=== PATIENT | female | born 1965 | race Caucasian/White ===

== ENCOUNTER 2018-07-26 02:06 | Emergency (ER) | payer OTHER ==
[2018-07-26 03:05] LABS: Absolute Lymphocytes (CBC) 2.9 K/uL (0.7-4.9); Absolute Monocytes 1.1 K/uL (0.1-1.3); Absolute Neutrophil 9.9 K/uL (1.8-8.0); Basophils % 0.8 % (0-1.3); Hematocrit 43.9 % (36.0-45.0); Lymphocytes % 20.2 % (15.3-44.8); MPV 9.3 fL (7.6-11.3); Monocytes % 7.5 % (3.3-12.3); RBC Red Blood Cell Count 4.43 M/uL (3.86-4.86)
[2018-07-26] MEDS ORDERED: ONDANSETRON 4 MG/2 ML VIAL ONE (03:09)
[2018-07-26] MEDS ORDERED: MORPHINE 4 MG/ML SYR ONE (03:09)
[2018-07-26] MEDS ORDERED: DIAZEPAM 10 MG/2 ML INJ SYRINGE ONE (03:10)
[2018-07-26 04:31] LABS: Albumin 3.7 g/dL (3.4-5.0); Bilirubin Total 0.4 mg/dL (0.2-1.0); Potassium 4.1 mmol/L (3.5-5.1); Protein, Total 7.2 g/dL (6.4-8.2)
[2018-07-26] MEDS ORDERED: KETOROLAC 30 MG/ML INJ ONE (04:47)
--- NOTE | 2018-07-26 04:50 | EDPHYS ---
Physician Documentation [facility] Name: Amanda Gross Age: 53 yrs Sex: Female : 1965 Arrival Date: 07/26/2018 Time: 02:06 Bed 15 Private MD: Sage De La Torre ED Physician Peter Edwards HPI: 07/26 02:34 This 53 yrs old Female presents to ER via Ambulatory with complaints of L jmm Arm/Shoulder Pain, R Hand/Thumb Pain. 02:34 The patient or guardian complains of pain. Onset: The symptoms/episode began/occurred jmm gradually, 1 day(s) ago. Modifying factors: the symptoms are alleviated by nothing. The symptoms are aggravated by movement. Associated signs and symptoms: Pertinent negatives: chest pain. This is a 53 year old female with a history of GERD, HLP, HTN that presents to the ED with complaints of left sided shoulder pain worsening this evening. Patient states having a similar episode 2 years ago. Patient denies chest pain, denies shortness of breath. . Historical: - Allergies: 02:20 Amoxicillin; tl2 02:20 Atarax; tl2 02:20 Doxycycline; tl2 02:20 HYDROCODONE; tl2 02:20 steroids; tl2 02:20 Sulfa (Sulfonamide Antibiotics); tl2 - Home Meds: 02:20 [place] Thyroid 180 mg Oral tab daily [Active]; biotin 1,000 mcg Oral chew 2 tab daily tl2 [Active]; Bystolic 5 mg Oral tab 1 tab once daily [Active]; Fish Oil 1,000 mg Oral cap twice a day [Active]; Lipitor 40 mg Oral tab 1 tab once daily [Active]; metoprolol tartrate 50 mg Oral tab 1 tab once daily [Active]; Protonix 40 mg Oral TbEC 1 tab once daily [Active]; Singulair 10 mg Oral tab 1 tab once daily [Active]; Vitamin D3 5,000 unit Oral tab daily [Active]; - PMHx: 02:20 Cholelithiasis; Diverticulitis; GERD; High Cholesterol; Hypertension; Hypothyroidism; tl2 Kidney stones; RIGHT RENAL ART ANUR; TUMOR REMOVAL FROM CHIN; - PSHx: 02:20 right arm sx; tl2 - Immunization history:: Adult Immunizations up to date. - Social history:: Smoking status: Patient uses tobacco products, smokes two packs cigarettes per day. - Ebola Screening: : No symptoms or risks identified at this time. ROS: 02:34 Constitutional: Negative for fever, chills, and weight loss, Cardiovascular: Negative jm for chest pain, palpitations, and edema, Respiratory: Negative for shortness of breath, cough, wheezing, and pleuritic chest pain. 02:34 MS/extremity: Positive for pain. 02:34 All other systems are negative. Exam: 02:34 Head/Face: atraumatic. Eyes: EOMI, no conjunctival erythema appreciated ENT: Moist jmm Mucus Membranes Neck: Trachea midline, Supple Chest/axilla: Normal chest wall appearance and motion. Cardiovascular: Regular rate and rhythm. No edema appreciated Respiratory: Normal respirations, no respiratory distress appreciated Abdomen/GI: Non distended, soft Back: Normal ROM 02:34 Constitutional: The patient appears alert, awake, anxious, in obvious pain. 02:34 Musculoskeletal/extremity: Extremities: ROM: painful rom of the left shoulder, full radial pulse, full probate lawyer strength, NVI. 02:34 Skin: Appearance: Color: normal in color. 02:34 Neuro: Orientation: is normal, Mentation: is normal, Memory: is normal. 02:34 Psych: Behavior/mood is pleasant, cooperative. Vital Signs: 02:20 BP 140 / 75; Pulse 93; Resp 18; Temp 98.3(O); Pulse Ox 94% on R/A; Weight 82.55 kg; tl2 Height 5 ft. 1 in. (154.94 cm); Pain 10/10; 03:30 BP 110 / 85; Pulse 88; Resp 20; Pulse Ox 92% on R/A; jb4 04:30 BP 135 / 78; Pulse 82; Resp 16; Pulse Ox 96% on 2 lpm NC; jb4 04:45 BP 127 / 82; Pulse 83; Resp 16; Pulse Ox 95% on R/A; jb4 02:20 Body Mass Index 34.39 (82.55 kg, 154.94 cm) tl2 03:30 Pt placed on 2l NC per protocol. jb4 MDM: 02:20 Patient medically screened. [facility] 02:37 Transition of care: After a detail discussion of the patient's case, care is jmm transferred to Peter Edwards MD. 02:54 Data reviewed: vital signs, nurses notes. Counseling: I had a detailed discussion with sheng the patient and/or guardian regarding: the historical points, exam findings, and any diagnostic results supporting the discharge/admit diagnosis, lab results, radiology results. 07/26 02:29 Order name: CBC with Diff [facility] 07/26 02:29 Order name: CMP [facility] 07/26 02:29 Order name: Shoulder Left (2 View) XRAY [facility] 07/26 02:33 Order name: Troponin (emerg Dept Use Only) [facility] 07/26 02:29 Order name: Saline Lock; Complete Time: 02:53 [facility] Administered Medications: 03:02 Drug: Zofran 4 mg Route: IVP; Site: right wrist; jb4 03:35 Follow up: Response: No adverse reaction; Nausea is decreased jb4 03:04 Drug: Valium 2 mg Route: IVP; Site: right wrist; jb4 03:35 Follow up: Response: No adverse reaction; Pain is decreased jb4 03:07 Drug: morphine 4 mg Route: IVP; Site: right wrist; jb4 03:35 Follow up: Response: No adverse reaction; Pain is decreased jb4 04:43 Drug: TORadol 30 mg Route: IVP; Site: right wrist; jb4 05:00 Follow up: Response: No adverse reaction; Pain is decreased jb4 Disposition: 07:21 Co-signature as Attending Physician, Peter Edwards MD I agree with the assessment and 4 plan of care. Disposition: 07/26/18 04:50 Discharged to Home. Impression: Pain in left shoulder. - Condition is Stable. - Discharge Instructions: Musculoskeletal Pain, Pain Without a Known Cause, Shoulder Pain. - Prescriptions for Ibuprofen 600 mg Oral Tablet - take 1 tablet by ORAL route every 6 hours As needed take with food; 30 tablet. - Medication Reconciliation Form, Thank You Letter, Antibiotic Education, Prescription Opioid Use form. - Follow up: Sage De La Torre MD; When: Upon discharge from the Emergency Department; Reason: If symptoms return, Recheck today's complaints, Continuance of care. - Problem is new. - Symptoms have improved. Signatures: Dispatcher [employer] EDMS Manny Tavares PA PA jmm Knox, Taylor, RN RN tl2 Leland Jackson RN RN jb4 Peter Edwards MD MD tw4 Corrections: (The following items were deleted from the chart) 02:58 02:54 ED course: I discussed the patient with Dr. Rahman whom accepted admission. . sheng patricio 05:12 04:50 07/26/2018 04:50 Discharged to Home. Impression: Pain in left shoulder. Condition jb4 is Stable. Forms are Medication Reconciliation Form, Thank You Letter, Antibiotic Education, Prescription Opioid Use. Follow up: Sage De La Torre; When: Upon discharge from the Emergency Department; Reason: If symptoms return, Recheck today's complaints, Continuance of care. Problem is new. Symptoms have improved. tw4
--- NOTE | 2018-07-26 04:50 | ER ---
Nurse's Notes [facility] Name: Amanda Gross Age: 53 yrs Sex: Female : 1965 Arrival Date: 07/26/2018 Time: 02:06 Bed 15 Private MD: Sage De La Torre Diagnosis: Pain in left shoulder Presentation: 07/26 02:15 Presenting complaint: Patient states: left shoulder, arm and hand pain started this tl2 afternoon. Denies chest pain or shortness of breath. Transition of care: patient was not received from another setting of care. Onset of symptoms was July 25, 2018. Risk Assessment: Do you want to hurt yourself or someone else? Patient reports no desire to harm self or others. Initial Sepsis Screen: Does the patient meet any 2 criteria? No. Patient's initial sepsis screen is negative. Does the patient have a suspected source of infection? No. Patient's initial sepsis screen is negative. Care prior to arrival: None. 02:15 Method Of Arrival: Ambulatory tl2 02:15 Acuity: MEHNAZ 3 tl2 Triage Assessment: 02:20 General: Appears in no apparent distress. uncomfortable, Behavior is anxious, crying. tl2 Pain: Complains of pain in left shoulder. L arm, L hand. Historical: - Allergies: 02:20 Amoxicillin; tl2 02:20 Atarax; tl2 02:20 Doxycycline; tl2 02:20 HYDROCODONE; tl2 02:20 steroids; tl2 02:20 Sulfa (Sulfonamide Antibiotics); tl2 - Home Meds: 02:20 [place] Thyroid 180 mg Oral tab daily [Active]; biotin 1,000 mcg Oral chew 2 tab daily tl2 [Active]; Bystolic 5 mg Oral tab 1 tab once daily [Active]; Fish Oil 1,000 mg Oral cap twice a day [Active]; Lipitor 40 mg Oral tab 1 tab once daily [Active]; metoprolol tartrate 50 mg Oral tab 1 tab once daily [Active]; Protonix 40 mg Oral TbEC 1 tab once daily [Active]; Singulair 10 mg Oral tab 1 tab once daily [Active]; Vitamin D3 5,000 unit Oral tab daily [Active]; - PMHx: 02:20 Cholelithiasis; Diverticulitis; GERD; High Cholesterol; Hypertension; Hypothyroidism; tl2 Kidney stones; RIGHT RENAL ART ANUR; TUMOR REMOVAL FROM CHIN; - PSHx: 02:20 right arm sx; tl2 - Immunization history:: Adult Immunizations up to date. - Social history:: Smoking status: Patient uses tobacco products, smokes two packs cigarettes per day. - Ebola Screening: : No symptoms or risks identified at this time. Screenin:45 Abuse screen: Denies threats or abuse. Nutritional screening: No deficits noted. jb4 Tuberculosis screening: No symptoms or risk factors identified. Fall Risk IV access (20 points). Total Nolan Fall Scale indicates No Risk (0-24 pts). Assessment: 02:45 General: Appears distressed, uncomfortable, Behavior is cooperative, agitated, anxious, jb4 crying. Pain: Complains of pain in dorsal aspect of proximal phalanx of right thumb and anterior aspect of left shoulder Pain radiates to left arm Pain currently is 10 out of 10 on a pain scale. Quality of pain is described as shooting, stabbing, throbbing, Pain began 1 day ago. Neuro: Level of Consciousness is awake, alert, obeys commands, Oriented to person, place, time, situation. Cardiovascular: Patient's skin is warm and dry. Respiratory: Airway is patent Respiratory effort is even, unlabored, Respiratory pattern is regular, symmetrical. GI: No signs and/or symptoms were reported involving the gastrointestinal system. : No signs and/or symptoms were reported regarding the genitourinary system. EENT: No signs and/or symptoms were reported regarding the EENT system. Derm: Skin is intact, Skin is pink, warm \T\ dry. Musculoskeletal: Circulation, motion, and sensation intact. 03:30 Reassessment: Patient appears in no apparent distress at this time. Patient and/or jb4 family updated on plan of care and expected duration. Pain level reassessed. Patient is alert, oriented x 3, equal unlabored respirations, skin warm/dry/pink. Patient states feeling better. 04:28 Reassessment: Patient appears in no apparent distress at this time. Patient and/or jb4 family updated on plan of care and expected duration. Pain level reassessed. Patient is alert, oriented x 3, equal unlabored respirations, skin warm/dry/pink. PT reports an increase in pain, provider notified, see MAR for orders. 05:09 Reassessment: Patient appears in no apparent distress at this time. Patient and/or jb4 family updated on plan of care and expected duration. Pain level reassessed. Patient is alert, oriented x 3, equal unlabored respirations, skin warm/dry/pink. Pt discharged home with daughter, Left ED in a wheelchair. IV d/c'ed, verbalized understanding of d/c and follow up instructions. Patient states feeling better. Vital Signs: 02:20 BP 140 / 75; Pulse 93; Resp 18; Temp 98.3(O); Pulse Ox 94% on R/A; Weight 82.55 kg; tl2 Height 5 ft. 1 in. (154.94 cm); Pain 10/10; 03:30 BP 110 / 85; Pulse 88; Resp 20; Pulse Ox 92% on R/A; jb4 04:30 BP 135 / 78; Pulse 82; Resp 16; Pulse Ox 96% on 2 lpm NC; jb4 04:45 BP 127 / 82; Pulse 83; Resp 16; Pulse Ox 95% on R/A; jb4 02:20 Body Mass Index 34.39 (82.55 kg, 154.94 cm) tl2 03:30 Pt placed on 2l NC per protocol. jb4 ED Course: 02:06 Patient arrived in ED. ds1 02:07 aSge De La Torre MD is Private Physician. ds1 02:13 Manny Tavares PA is PHCP. jmm 02:13 Peter Edwards MD is Attending Physician. [facility] 02:16 Triage completed. tl2 02:20 Arm band placed on right wrist. tl2 02:30 Leland Jackson, VINCE is Primary Nurse. jb4 02:45 Patient has correct armband on for positive identification. Bed in low position. Call [facility] light in reach. Side rails up X 1. Pulse ox on. NIBP on. 03:00 X-ray completed. Portable x-ray completed in exam room. Patient tolerated procedure kw well. 03:00 Initial lab(s) drawn, by me, sent to lab. Inserted saline lock: 22 gauge in right jb4 wrist, using aseptic technique. Blood collected. 03:00 Missed attempt(s): 22 gauge in right. jb4 03:01 Shoulder Left (2 View) XRAY In Process Unspecified. EDMS 04:50 Sage De La Torre MD is Referral Physician. tw4 05:11 No provider procedures requiring assistance completed. IV discontinued, intact, jb4 bleeding controlled, No redness/swelling at site. Administered Medications: 03:02 Drug: Zofran 4 mg Route: IVP; Site: right wrist; jb4 03:35 Follow up: Response: No adverse reaction; Nausea is decreased jb4 03:04 Drug: Valium 2 mg Route: IVP; Site: right wrist; jb4 03:35 Follow up: Response: No adverse reaction; Pain is decreased jb4 03:07 Drug: morphine 4 mg Route: IVP; Site: right wrist; jb4 03:35 Follow up: Response: No adverse reaction; Pain is decreased jb4 04:43 Drug: TORadol 30 mg Route: IVP; Site: right wrist; jb4 05:00 Follow up: Response: No adverse reaction; Pain is decreased jb4 Outcome: 04:50 Discharge ordered by . tw4 05:11 Discharged to home via wheelchair, with family. jb4 05:11 Condition: stable 05:11 Discharge instructions given to patient, family, Instructed on discharge instructions, follow up and referral plans. medication usage, Demonstrated understanding of instructions, follow-up care, medications, Prescriptions given X 1. 05:12 Patient left the ED. jb4 Signatures: Dispatcher [employer] EDMS Manny Tavares PA PA jmm Sanford, Demi ds1 Diane Talavera Taylor, RN RN tl2 Leland Jackson RN RN jb4 Peter Edwards MD MD tw4 Corrections: (The following items were deleted from the chart) 04:45 03:30 BP 110 / 85; Pulse 88bpm; Resp 20bpm; Pulse Ox 92% RA; jb4 jb4
--- NOTE | 2018-07-26 08:55 | RAD REPORT ---
EXAM DESCRIPTION: RAD - Shoulder Left 2 View - 07/26/2018 3:01 am CLINICAL HISTORY: Nontraumatic left shoulder pain October 2016 COMPARISON: None. TECHNIQUE: Internal and external rotation views of the left shoulder were obtained. FINDINGS: There is no fracture or dislocation. AC joint is normal in appearance. No significant dege nerative change at the AC joint. Acromial humeral joint space is normal with no abnormal soft tissue calcifications. IMPRESSION: Negative two-view left shoulder examination for acute or significant finding. Concerns for rotator cuff tear, other internal derangement or occult bone process can be addressed wi MR imaging.
--- NOTE | 2018-07-26 16:50 | EKG ---
Test Date: 2018-07-26 Test Time: 02:21:29 Doctor Of Pharmacy: ANDRADE MEASUREMENT RESULTS: Intervals: Rate: 89 DC: 124 QRSD: 74 QT: 372 QTc: 452 [place]: P: 70 DC: 124 QRS: 53 T: 67 INTERPRETIVE STATEMENTS: Normal sinus rhythm Normal ECG Compared to ECG 11/16/2016 21:13:07 No significant changes Electronically Signed On 07-26-18 16:49:15 CDT by Freddy Cano
== END 2018-07-26 05:12 | disposition home or self-care (01) ==
LOC: ER 02:06
DX: M25.512 Pain in left shoulder (principal); F17.210 Nicotine dependence, cigarettes, uncomplicated; I10 Essential (primary) hypertension; E03.9 Hypothyroidism, unspecified; K21.9 Gastro-esophageal reflux disease without esophagitis; Z88.1 Allergy status to other antibiotic agents; Z88.2 Allergy status to sulfonamides; Z88.5 Allergy status to narcotic agent; Z88.8 Allergy status to other drugs, medicaments and biological substances; Z87.442 Personal history of urinary calculi
CPT/HCPCS: 36415; 80053; 84484; 85025; 93005; 96374; 96375; 99284; J2405; J3360

== ENCOUNTER 2024-04-22 23:50 | Observation (INO) | payer OTHER ==
[2024-04-23] MEDS ORDERED: METHYLPREDNISOLONE 125 MG INJ ONE (00:49)
[2024-04-23] MEDS ORDERED: IPRATROPIUM BROM 0.5MG/2.5ML ONE ×2 (00:49→09:29)
[2024-04-23] MEDS ORDERED: LEVALBUTEROL 0.63 MG/3 ML NEB ONE ×2 (00:50→09:15)
[2024-04-23 01:01] LABS: Absolute Eosinophils 0.1 K/uL (0-0.5); Absolute Lymphocytes (CBC) 1.8 K/uL (0.7-4.9); Absolute Monocytes 0.6 K/uL (0.1-1.3); Absolute Neutrophil 2.3 K/uL (1.8-8.0); Basophils % 0.7 % (0-1.3); Eosinophils % 1.7 % (0-4.4); Hematocrit 45.2 % (36.0-45.0); Hemoglobin 15.6 g/dL (12.0-15.0); Lymphocytes % 37.9 % (15.3-44.8); MCH 34.7 pg (27.0-35.0); MCHC 34.5 g/dL (32.0-36.0); MCV 100.5 fL (80-100); MPV 9.2 fL (7.6-11.3); Monocytes % 11.5 % (3.3-12.3); Neutrophils % 48.2 % (41.7-73.7); Nucleated Red Blood Cells % 0.2 % (0-0); Platelets 195 thou/uL (152-406); RBC Red Blood Cell Count 4.49 M/uL (3.86-4.86)
[2024-04-23 01:06] LABS: PT Prothrombin Time 10.7 SECONDS (9.4-12.5); Protime INR 1.02
[2024-04-23] MEDS ORDERED: predniSONE 20 MG TAB ONE (01:08)
[2024-04-23 01:20] LABS: ALT/SGPT 35 U/L (13-56); AST/SGOT 25 U/L (15-37); Albumin 3.1 g/dL (3.4-5.0); Albumin/Globulin Ratio 0.8 (1.1-1.8); Alkaline Phosphatase 88 U/L (45-117); Anion Gap 7.8 mEq/L (5.0-15.0); BUN Blood Urea Nitrogen 6 mg/dL (7-18); Bicarbonate 28 mEq/L (21-32); Bilirubin Direct < 0.2 mg/dL (0-0.2); Bilirubin Indirect, Calculated 0.1 mg/dL (0.2-0.8); Bilirubin Total 0.3 mg/dL (0.2-1.0); Globulin 3.9 g/dL (2.3-3.5); Glomerular Filtration Rate 100 ml/min (=/>90); Glucose Level 173 mg/dL (74-106); Magnesium 2.1 mg/dL (1.6-2.4); NT PRO-BNP 33 pg/mL (<125); Potassium 3.8 mEq/L (3.5-5.1); Sodium Level 138 mEq/L (136-145); Troponin High Sensitivity 3.7 pg/mL (<58.9)
--- NOTE | 2024-04-23 01:35 | EDPHYS ---
Physician Documentation [facility] Name: Amanda Gross Age: 58 yrs Sex: Female : 1965 Arrival Date: 04/22/2024 Time: 23:50 Bed 27 Private MD: ED Physician Aguilar Sheffield HPI: 04/23 00:20 This 58 yrs old Female presents to ER via Wheelchair with complaints of Shortness Of cp Breath. 00:20 The patient has shortness of breath at rest. cp 00:20 Onset: The symptoms/episode began/occurred 5 day(s) ago. cp 00:20 Duration: The symptoms are continuous, and are steadily getting worse. Associated signs cp and symptoms: Pertinent positives: chest pain, cough, back pain, chills, Pertinent negatives: diaphoresis. Severity of symptoms: in the emergency department the symptoms are worse moderately. Historical: - Allergies: 04/22 23:57 Amoxicillin; me1 23:57 Atarax; me1 23:57 Doxycycline; me1 23:57 HYDROCODONE; me1 23:57 Sulfa (Sulfonamide Antibiotics); me1 23:57 steroids; me1 - PMHx: 23:57 Cholelithiasis; Diverticulitis; GERD; High Cholesterol; Hypertension; Hypothyroidism; me1 Kidney stones; RIGHT RENAL ART ANUR; TUMOR REMOVAL FROM CHIN; - PSHx: 23:57 Cholecystectomy; Total abdominal hysterectomy; section; me1 - Immunization history:: Adult Immunizations up to date. - Infectious Disease History:: Denies. - Social history:: Smoking status: Patient reports the use of cigarette tobacco products, smokes two packs cigarettes per day. ROS: 04/23 00:25 Constitutional: Positive for chills, Negative for fever, cp 00:25 Eyes: Negative for injury, pain, redness, and discharge, cp 00:25 ENT: Negative for drainage from ear(s), ear pain, difficulty swallowing, difficulty handling secretions, 00:25 Cardiovascular: Positive for chest pain, with cough, Negative for edema, 00:25 Respiratory: Positive for cough, "sounds productive", shortness of breath, at rest. 00:25 Abdomen/GI: Positive for nausea and vomiting, Negative for constipation, 00:25 Neuro: Negative for altered mental status, 00:25 All other systems are negative, Exam: 00:30 Constitutional: The patient appears alert, awake, non-diaphoretic, non-toxic, well cp developed, well nourished, in obvious distress, mildly distressed, 00:30 Head/Face: Normocephalic, atraumatic. cp 00:30 Eyes: Periorbital structures: appear normal, Conjunctiva: normal, no exudate, no injection, Sclera: no appreciated abnormality, Lids and lashes: appear normal, bilaterally, 00:30 ENT: External ear(s): are unremarkable, Nose: is normal, Mouth: Lips: moist, Oral mucosa: moist, Posterior pharynx: Airway: no evidence of obstruction, patent, 00:30 Neck: ROM/movement: is normal, is supple, without pain, no range of motions limitations, 00:30 Chest/axilla: Inspection: normal, 00:30 Cardiovascular: Rate: tachycardic, Rhythm: regular, Edema: is not appreciated, JVD: is not appreciated, 00:30 Respiratory: mild respiratory distress is noted, Respirations: labored breathing, that is moderate, Breath sounds: decreased breath sounds, that are moderate, throughout, stridor, is not appreciated, wheezing: that is mild, is heard diffusely, 00:30 Abdomen/GI: Inspection: abdomen appears normal, Palpation: abdomen is soft and non-tender, in all quadrants, 00:30 Back: pain, that is moderate, of the left scapular area, right scapular area, left subscapular area and right subscapular area, 00:30 Neuro: Orientation: to person, place \\T\\ time. Mentation: is normal, Motor: moves all fours, strength is normal, Sensation: no obvious gross deficits, 01:10 ECG was reviewed by the Attending Physician. cp Vital Signs: 04/22 23:56 BP 124 / 84; Pulse 100; Resp 22; Temp 98.7; Pulse Ox 92% on R/A; Weight 77.11 kg; me1 Height 5 ft. 1 in. ; Pain 07/05; 04/23 00:00 BP 112 / 68; Pulse 92; Resp 21; Pulse Ox 94% on 3 lpm NC; al5 00:30 BP 112 / 82; Pulse 92; Resp 23; Pulse Ox 99% on 3 lpm NC; al5 01:12 BP 97 / 79; Pulse 89; Resp 21; Pulse Ox 100% on 3 lpm NC; al5 02:30 BP 112 / 78; Pulse 82; Resp 20; Pulse Ox 98% on 3 lpm NC; al5 03:00 BP 98 / 86; Pulse 91; Resp 22; Pulse Ox 99% on 3 lpm NC; al5 05:00 BP 120 / 72; Pulse 60; Resp 18 S; Pulse Ox 98% on R/A; br2 04/22 23:56 Body Mass Index 32.12 (77.11 kg, 154.94 cm) al1 04/22 23:56 Pain Scale: Adult me1 MDM: 00:07 Medical Screening Exam initiated cp 00:30 Differential diagnosis: Chronic Obstructive Pulmonary Disease pneumonia, Pneumothorax cp pulmonary edema, Pulmonary Embolism Sepsis Unstable Angina. 01:35 Data reviewed: vital signs, nurses notes, lab test result(s), EKG, radiologic studies, cp plain films, and as a result, I will admit patient. 01:35 Antibiotic administration: Levaquin given. I considered the following discharge cp prescriptions or medication management in the emergency department Medications were administered in the Emergency Department. See MAR. Care significantly affected by the following chronic conditions: Hypertension, Chronic Obstructive Pulmonary Disease. Counseling: I had a detailed discussion with the patient and/or guardian regarding the historical points, exam findings, and any diagnostic results supporting the discharge/admit diagnosis, lab results, radiology results, the need for further work-up and treatment in the hospital. Response to treatment: the patient's symptoms have mildly improved after treatment. Admission orders: after a detailed discussion of the patient's condition and case, the admit orders are written by me. 04/23 00:17 Order name: Basic Metabolic Panel; Complete Time: cp 04/23 01: Interpretation: Normal except: GLUC 173; BUN 6. cp 04/23 00:17 Order name: CBC with Diff; Complete Time: 01:10 cp 04/23 01:10 Interpretation: Normal except: HGB 15.6; HCT 45.2; MCV 100.5. cp 04/23 00:17 Order name: LFT's; Complete Time: cp 04/23 01:28 Interpretation: Normal except: IBILI, CALC 0.1; ALB 3.1; GLOB 3.9; A/G 0.8. cp 04/23 00:17 Order name: Magnesium; Complete Time: 01:27 cp 04/23 00:17 Order name: NT PRO-BNP; Complete Time: 01:27 cp 04/23 00:17 Order name: PT-INR; Complete Time: 01:10 cp 04/23 00:17 Order name: Troponin HS; Complete Time: 01:27 cp 04/23 00:18 Order name: SARS RAPID cp 04/23 00:18 Order name: Influenza Screen (a \\T\\ B) cp 04/23 00:18 Order name: RSV cp 04/23 01:33 Order name: Lactate w/ 2H reflex if indic. cp 04/23 01:33 Order name: Blood Culture Adult (2) cp 04/23 01:33 Order name: Urinalysis w/ reflexes cp 04/23 01:58 Order name: Basic Metabolic Panel EDMS 04/23 01:58 Order name: Basic Metabolic Panel EDMS 04/23 01:58 Order name: CBC with Automated Diff EDMS 04/23 01:58 Order name: CBC with Automated Diff EDMS 04/23 01:58 Order name: NT PRO-BNP EDMS 04/23 01:58 Order name: NT PRO-BNP EDMS 04/23 01:58 Order name: Troponin High Sensitivity EDMS 04/23 00:17 Order name: XRAY Chest (1 view) cp 04/23 00:17 Order name: Cardiac monitoring; Complete Time: 00:42 cp 04/23 00:17 Order name: EKG - Nurse/Tech; Complete Time: 01:07 cp 04/23 00:17 Order name: IV Saline Lock; Complete Time: 00:42 cp 04/23 00:17 Order name: Labs collected and sent; Complete Time: 00:42 cp 04/23 00:17 Order name: O2 Per Protocol; Complete Time: 00:42 cp 04/23 00:17 Order name: O2 Sat Monitoring; Complete Time: 00:42 cp EC:10 Rate is 88 beats/min. Rhythm is regular. NH interval is normal. QRS interval is normal. cp QT interval is normal. T waves are Inverted in lead aVR. Interpreted by me. Reviewed by me. Administered Medications: 00:23 CANCELLED (Physician Discretion): DuoNeb Nebulize (2.5 mg - 0.5 mg) 3 ml Nebulizer once cp 01:00 CANCELLED (Physician Discretion): [id number] mg IVP once cp 01:16 Drug: Ipratropium Inhalation Aerosol 0.5 mg Inhalation once Route: Inhalation; br2 02:30 Follow up: Response: No adverse reaction br2 01:16 Drug: predniSONE PO 60 mg PO once Route: PO; br2 02:00 Follow up: Response: No adverse reaction br2 01:17 Drug: Levalbuterol Inhalation 1.25 mg Inhalation once Route: Inhalation; br2 02:30 Follow up: Response: No adverse reaction br2 02:21 CANCELLED (Physician Discretion): hydrocodone-acetaminophen(7.5 mg-325 mg) 1 tabs PO cp once; RASS on ADMIN: Combtv4, Very Agttd3, Agttd2, Rstlss1, AlertClm0, Drwsy-1, Lt Sdtn-2, Mod Sdtn-3, Dp Sdtn-4, UnArsble-5 02:35 Not Given (Physician Discretion): fentanyl (pf)25 mcg IVP once cp 02:55 Drug: levofloxacin IVPB 750 mg 150 ml IVPB once over 90 mins Volume: 150 ml; Route: br2 IVPB; Infused Over: 90 mins; Site: right antecubital; 04:00 Follow up: Response: No adverse reaction; IV Status: Completed infusion; IV Intake: br2 150ml 02:55 Drug: Ibuprofen PO 800 mg PO once Route: PO; br2 03:30 Follow up: Response: No adverse reaction br2 02:56 Drug: NS 0.9% IV 500 ml IV at bolus once; to be given as a bolus over 30 minutes Route: br2 IV; Rate: bolus; Site: right antecubital; 03:30 Follow up: IV Status: Completed infusion; IV Intake: 500ml br2 Disposition: 06:29 I was immediately available on-site in the Emergency Department for consultation in the ms3 care of the patient. Disposition Summary: 04/23/24 01:34 Hospitalization Ordered Notes: Hospitalization Status: Inpatient Admission cp Provider: Karon De La Torre cp Condition: Stable cp Problem: new cp Symptoms: have improved cp Bed/Room Type: Standard cp Location: Telemetry/MedSurg (Inpatient)(04/23/24 13:28) bd Room Assignment: [facility](04/23/24 13:28) bd Diagnosis - Pneumonia, unspecified organism cp - COPD/ Chronic obstructive pulmonary disease with (acute) exacerbation cp Forms: - Medication Reconciliation Form cp - SBAR form cp - Leadership Thank You Letter cp Signatures: Dispatcher [employer] EDMS Regina Joe Corey, PA PA cp Able, Lacie, RN RN lg3 Aguilar Sheffield, DO ms3 Michelle Maldonado, RN RN me1 Blanca Hoyt RN RN br2 Corrections: (The following items were deleted from the chart) 00:18 00:18 BASIC METABOLIC PANEL+C.LAB.BRZ ordered. EDMS EDMS 00:18 00:18 CBC+H.LAB.BRZ ordered. EDMS EDMS 00:18 00:18 HEPATIC FUNCTION+C.LAB.BRZ ordered. EDMS EDMS 00:18 00:18 MAGNESIUM+C.LAB.BRZ ordered. EDMS EDMS 00:18 00:18 PROBNP+C.LAB.BRZ ordered. EDMS EDMS 00:18 00:18 PROTIME (+INR)+COAG.LAB.BRZ ordered. EDMS EDMS 00:18 00:18 Troponin High Sensitivity+C.LAB.BRZ ordered. EDMS EDMS 00:18 00:18 Chest Single View+RAD.RAD.BRZ ordered. EDMS EDMS 00:19 00:18 SARS-COV-2 Antigen Rapid+I.LAB.BRZ ordered. EDMS EDMS 00:19 00:18 Influenza Screen (A \\T\\ B)+BA.LAB.BRZ ordered. EDMS EDMS 00:19 00:18 Respiratory Syncytial Virus Ag+BA.LAB.BRZ ordered. EDMS EDMS 00:23 00:17 DuoNeb Nebulize (2.5 mg - 0.5 mg) 3 ml Nebulizer once ordered. cp cp 01:00 00:17 MethylPrednisoLONE IVP 125 mg IVP once ordered. cp cp 01:33 01:33 LACTATE+C.LAB.BRZ ordered. EDMS EDMS 01:33 01:33 BLOOD CULTURE*+BA.LAB.BRZ ordered. EDMS EDMS 01:33 01:33 Urinalysis+U.LAB.BRZ ordered. EDMS EDMS 02:21 01:49 Hydrocodone-Acetaminophen PO (7.5 mg-325 mg) 1 tabs PO once; RASS on ADMIN: cp Combtv4, Very Agttd3, Agttd2, Rstlss1, AlertClm0, Drwsy-1, Lt Sdtn-2, Mod Sdtn-3, Dp Sdtn-4, UnArsble-5 ordered. cp 02:21 01:34 Telemetry/MedSurg (Inpatient) cp lg3 02:21 01:34 cp lg3 13: 02:21 [facility] ER HOLD lg3 bd : 02:21 ERHOLD- lg3 bd
--- NOTE | 2024-04-23 01:35 | ER ---
Nurse's Notes [facility] Name: Amanda Gross Age: 58 yrs Sex: Female : 1965 Arrival Date: 04/22/2024 Time: 23:50 Bed 27 Private MD: Diagnosis: Pneumonia, unspecified organism;COPD/ Chronic obstructive pulmonary disease with (acute) exacerbation Presentation: 04/22 23:56 Chief complaint: Patient states: cough, congestion, fever, chills, diarrhea, nausea, me1 upper middle back pain that started last Tuesday. Coronavirus screen: Vaccine status: Patient reports being unvaccinated. Ebola Screen: No symptoms or risks identified at this time. Initial Sepsis Screen: Does the patient meet any 2 criteria? HR > 90 bpm. Risk Assessment: Do you want to hurt yourself or someone else? Patient reports no desire to harm self or others. Onset of symptoms was April 17, 2024. 23:56 Method Of Arrival: Wheelchair me1 23:56 Acuity: MEHNAZ 3 me1 Triage Assessment: 04/23 00:15 General: Appears uncomfortable, Behavior is anxious. Respiratory: the patient has br2 moderate shortness of breath. Historical: - Allergies: 04/22 23:57 Amoxicillin; me1 23:57 Atarax; me1 23:57 Doxycycline; me1 23:57 HYDROCODONE; me1 23:57 Sulfa (Sulfonamide Antibiotics); me1 23:57 steroids; me1 - PMHx: 23:57 Cholelithiasis; Diverticulitis; GERD; High Cholesterol; Hypertension; Hypothyroidism; me1 Kidney stones; RIGHT RENAL ART ANUR; TUMOR REMOVAL FROM CHIN; - PSHx: 23:57 Cholecystectomy; Total abdominal hysterectomy; section; me1 - Immunization history:: Adult Immunizations up to date. - Infectious Disease History:: Denies. - Social history:: Smoking status: Patient reports the use of cigarette tobacco products, smokes two packs cigarettes per day. Screenin/27 00:[address] [facility] ED Fall Risk Assessment (Adult) History of falling in the last 3 months, br2 including since admission No falls in past 3 months (0 pts) Confusion or Disorientation No (0 pts) Intoxicated or Sedated No (0 pts) Impaired Gait No (0 pts) Mobility Assist Device Used Yes (1 pt) Altered Elimination No (0 pt) Score/Fall Risk Level 0 - 2 = Low Risk Oriented to surroundings, Maintained a safe environment. Abuse screen: Denies threats or abuse. Denies injuries from another. Nutritional screening: No deficits noted. Tuberculosis screening: Assessment: 00:15 Reassessment: Patient and/or family updated on plan of care and expected duration. Pain br2 level reassessed. General: Appears uncomfortable, Behavior is calm, cooperative. Cardiovascular: Capillary refill < 3 seconds. Respiratory: Airway is patent Respiratory effort is pursed lip, Respiratory pattern is regular, symmetrical, Breath sounds are diminished bilaterally. 03:30 Reassessment: Patient and/or family updated on plan of care and expected duration. Pain br2 level reassessed. Patient is alert, oriented x 3, equal unlabored respirations, skin warm/dry/pink. Patient states feeling better. Pain: Complains of pain in anterior aspect of right upper chest Pain radiates to right scapular area and right subscapular area Pain currently is 3 out of 10 on a pain scale. Cardiovascular: Rhythm is regular. 05:30 Reassessment: Patient and/or family updated on plan of care and expected duration. Pain br2 level reassessed. Patient is alert, oriented x 3, equal unlabored respirations, skin warm/dry/pink. Patient states feeling better. Patient states symptoms have improved. Vital Signs: 04/22 23:56 BP 124 / 84; Pulse 100; Resp 22; Temp 98.7; Pulse Ox 92% on R/A; Weight 77.11 kg; me1 Height 5 ft. 1 in. ; Pain 4/10; 04/23 00:00 BP 112 / 68; Pulse 92; Resp 21; Pulse Ox 94% on 3 lpm NC; al5 00:30 BP 112 / 82; Pulse 92; Resp 23; Pulse Ox 99% on 3 lpm NC; al5 01:12 BP 97 / 79; Pulse 89; Resp 21; Pulse Ox 100% on 3 lpm NC; al5 02:30 BP 112 / 78; Pulse 82; Resp 20; Pulse Ox 98% on 3 lpm NC; al5 03:00 BP 98 / 86; Pulse 91; Resp 22; Pulse Ox 99% on 3 lpm NC; al5 05:00 BP 120 / 72; Pulse 60; Resp 18 S; Pulse Ox 98% on R/A; br2 04/22 23:56 Body Mass Index 32.12 (77.11 kg, 154.94 cm) vt1 04/22 23:56 Pain Scale: Adult [facility] [place] ED Course: 04/22 23:52 Patient arrived in ED. im 23:55 Naga Valdez PA is PHCP. cp 23:55 Aguilar Sheffield DO is Attending Physician. cp 23:57 Triage completed. me1 23:57 Arm band placed on Patient placed in an exam room. me1 04/23 00:15 Patient has correct armband on for positive identification. Bed in low position. Call br2 light in reach. Provided Education on: PLAN OF CARE. 00:41 Blanca Hoyt, RN is Primary Nurse. br2 00:42 RSV Sent. br2 00:42 Influenza Screen (a \T\ B) Sent. br2 00:42 SARS RAPID Sent. br2 00:42 Basic Metabolic Panel Sent. br2 00:42 CBC with Diff Sent. br2 00:42 LFT's Sent. br2 00:42 Magnesium Sent. br2 00:42 NT PRO-BNP Sent. br2 00:42 PT-INR Sent. br2 00:43 Troponin HS Sent. br2 01:33 Karon De La Torre MD is Hospitalizing Provider. cp 01:41 XRAY Chest (1 view) In Process Unspecified. EDMS 02:08 First set of blood cultures drawn by me. vk 02:15 Blood Culture Adult (2) Sent. vk 02:15 Lactate w/ 2H reflex if indic. Sent. vk 02:16 Initial lab(s) drawn, by me, sent to lab. vk 02:47 Daughter, Holly Luo. rv1 07:18 No provider procedures requiring assistance completed. Patient admitted, IV remains in jl7 place. intact, No redness/swelling at site. Administered Medications: 00:23 CANCELLED (Physician Discretion): DuoNeb Nebulize (2.5 mg - 0.5 mg) 3 ml Nebulizer once cp 01:00 CANCELLED (Physician Discretion): [id number] mg IVP once cp 01:16 Drug: Ipratropium Inhalation Aerosol 0.5 mg Inhalation once Route: Inhalation; br2 02:30 Follow up: Response: No adverse reaction br2 01:16 Drug: predniSONE PO 60 mg PO once Route: PO; br2 02:00 Follow up: Response: No adverse reaction br2 01:17 Drug: Levalbuterol Inhalation 1.25 mg Inhalation once Route: Inhalation; br2 02:30 Follow up: Response: No adverse reaction br2 02:21 CANCELLED (Physician Discretion): hydrocodone-acetaminophen(7.5 mg-325 mg) 1 tabs PO cp once; RASS on ADMIN: Combtv4, Very Agttd3, Agttd2, Rstlss1, AlertClm0, Drwsy-1, Lt Sdtn-2, Mod Sdtn-3, Dp Sdtn-4, UnArsble-5 02:35 Not Given (Physician Discretion): fentanyl (pf)25 mcg IVP once cp 02:55 Drug: levofloxacin IVPB 750 mg 150 ml IVPB once over 90 mins Volume: 150 ml; Route: br2 IVPB; Infused Over: 90 mins; Site: right antecubital; 04:00 Follow up: Response: No adverse reaction; IV Status: Completed infusion; IV Intake: br2 150ml 02:55 Drug: Ibuprofen PO 800 mg PO once Route: PO; br2 03:30 Follow up: Response: No adverse reaction br2 02:56 Drug: NS 0.9% IV 500 ml IV at bolus once; to be given as a bolus over 30 minutes Route: br2 IV; Rate: bolus; Site: right antecubital; 03:30 Follow up: IV Status: Completed infusion; IV Intake: 500ml br2 Medication: 00:15 VIS not applicable for this client. br2 Intake: 03:30 IV: 500ml; Total: 500ml. br2 04:00 IV: 150ml; Total: 650ml. br2 Outcome: 01:34 Decision to Hospitalize by Provider. cp 07:18 Admitted to ER Hold. Please see [facility] for further documentation. jlKassy 07:18 Condition: stable 07:18 Instructed on the need for admit, 14:31 Admitted to Med/surg accompanied by nursealisson 14:31 Patient left the ED. alisson Signatures: Dispatcher [employer] EDMS Naga Valdez PA PA cp Leal, Jahala RN RN ric7 Joyce Small 1 Sandra Ott Michelle, RN RN vt1 Suni Bo Amanda, RN RN al5 Blanca Hoyt, RN RN br2
[2024-04-23 01:48] LABS: SARS-CoV-2 Antigen CONTROL BLUE LINE VIS/BG OK; SARS-CoV-2 Antigen Rapid Res Negative (Negative)
[2024-04-23] MEDS ORDERED: ONDANSETRON 4 MG/2 ML VIAL IV PRN (01:52)
[2024-04-23] MEDS ORDERED: HYDROCODONE/APAP 5/325 MG TAB PO PRN (01:52)
[2024-04-23] MEDS: Levofloxacin500mg IV 500 MG/100 ML BAG IV SCH (02:00)
[2024-04-23] MEDS ORDERED: NA CHLORIDE 0.9% 500 ML ONE (02:19)
[2024-04-23] MEDS ORDERED: HYDROCODONE/APAP 7.5/325 MG TAB ONE (02:19)
[2024-04-23] MEDS: Levofloxacin 750mg IV 750 MG/150 ML BAG IV ONE (02:41)
[2024-04-23] MEDS ORDERED: IBUPROFEN 400 MG TAB ONE (02:49)
[2024-04-23 03:43] VITALS: BMI 31.9
[2024-04-23 04:18] LABS: Specific Gravity 1.012 (1.005-1.030); Sqamous Epithelial <5 /HPF (None Seen); Urine Bacteria None Seen /HPF (<20); Urine Bilirubin NEGATIVE (Negative); Urine Blood Negative (Negative); Urine Clarity Turbid (Clear); Urine Color Light-Yellow (Yellow); Urine Culture Reflex Order NOT NEEDED; Urine Glucose NEGATIVE (Negative); Urine Ketones NEGATIVE (Negative); Urine Microscopic Reflex YN ORDER UMIC; Urine Mucus Slight /HPF (None Seen); Urine Nitrite NEGATIVE (Negative); Urine Protein NEGATIVE (Negative); Urine RBC <5 /HPF (None Seen); Urine Urobilinogen Normal (Normal); Urine WBC <5 /HPF (<5); Urine pH 7.5 (5.0-7.0)
--- NOTE | 2024-04-23 06:38 | RAD REPORT ---
EXAM: XR Chest, 1 View CLINICAL HISTORY: The patient is 58 years old and is Female; Cough;SOB TECHNIQUE: Frontal view of the chest. COMPARISON: No relevant prior studies available. FINDINGS: LUNGS: The lungs are hyperinflated. Linear opacity in the lower lobes is noted. There is no lobar consolidation. PLEURAL SPACE: Unremarkable. No pneumothorax. HEART: Unremarkable. No cardiomegaly. MEDIASTINUM: Unremarkable. Normal mediastinal contour. BONES/JOINTS: Unremarkable. No acute fracture. UPPER ABDOMEN: Unremarkable as visualized. IMPRESSION: Hyperinflated lungs with linear opacities in the lung bases suggestive of atelectasis. Electronically signed by: Judi Courtney MD 04/23/2024 01:42 AM [facility] Due to temporary technical issues with the PACS/Gridsum reporting system, reports are being jonatan d by the in-house radiologist without review as a courtesy to ensure prompt reporting the interpreting radiologist is fully responsible for the content of the report. Transcribed Date/Time: 04/23/2024 6:38 AM
[2024-04-23] MEDS: ALBUTEROL 2.5 MG/3 ML NEB SOL NEB SCH (07:00)
[2024-04-23] MEDS ORDERED: FLU (Fluarix Triv) TS24-25(6MOS UP)/PF 45 MCG/0.5 ML Syringe IM ONE (07:45)
[2024-04-23] MEDS ORDERED: ALBUTEROL 2.5 MG/3 ML NEB SOL ONE (12:13)
[2024-04-23] MEDS: IPRATROPIUM BROM 0.5MG/2.5ML NEB SCH (13:00)
[2024-04-23] MEDS: LEVALBUTEROL 0.63 MG/3 ML NEB NEB SCH (15:05)
[2024-04-23] MEDS: ENOXAPARIN 40 MG/0.4 ML SQ SCH (16:30)
[2024-04-23] MEDS: Levofloxacin 250mg IV 500 MG/100 ML BAG IV SCH (17:31)
[2024-04-23] MEDS: ATORVASTATIN 40 MG TAB PO SCH (20:38)
[2024-04-23] MEDS: DULERA 200/5 (MOMETASONE/FORMOTEROL) INHALER IH SCH (20:39)
[2024-04-24 04:40] VITALS: O2SAT 95
--- NOTE | 2024-04-24 05:40 | HP ---
Date of Admission: 04/23/2024 Chief Complaint: Cough, congestion, fever, shortness of breath. History Of Present Illness: This is a 58-year-old female patient, who has COPD with significant long history of smoking, continues to smoke, came into the emergency room with 5 to 6 days' history of co ugh, congestion, fever, shortness of breath, and wheezing. After she was evaluated in the emergency room, she was admitted to the hospital with pneumonia and acute exacerbation of COPD. She denies any vomiting, diarrhea. No chest pain. Allergies: DOXYCYCLINE CAUSING RASH, PENICILLIN CAUSING ITCHING, SULFA CAUSING ITCHING, ALBUTEROL CA USING TACHYCARDIA, AND METHYLPREDNISOLONE CAUSE DYSPNEA AND FLUSHING OF HER FACE. Review of Systems: Respiratory: As mentioned above. Constitutional: As mentioned above. All other systems reviewed and negative. Medications: At home, she takes aspirin 81 mg daily, atorvastatin 40 mg daily at bedtime, Trelegy El lipta inhaler 1 puff daily, fluticasone nasal spray 1 spray each nostril 2 times a day, ibandronate 1 50 mg once a month, Xopenex nebulizer treatment 0.63 mg 4 times a day as needed, montelukast 10 mg da lori, Januvia 100 mg daily, vitamin D3 5000 units daily. Past Medical History: Significant for type 2 diabetes mellitus, peripheral vascular disease, leg aydee ma, mixed hyperlipidemia, hypothyroidism, allergic rhinitis, COPD, hypertension, gastroesophageal ref lux disease, renal cyst, osteoporosis, chronic sinusitis. Past Surgical History: Significant for cholecystectomy, , hysterectomy, shoulder surgery, w rist surgery, and heel surgery. Family History: Father , had problem with alcoholism and blood clot in his lung and tuberculosis . Mother has hypertension, hyperlipidemia, diabetes, stroke, and COPD. Brother, history of alcohol use, prostate cancer, diabetes, hypertension. Sister , had hypertension and COPD. Social History: Significant for ongoing active smoking on a daily basis. Alcohol use, negative. Physical Examination: Vital Signs: Temperature 97.6, pulse 82, respiratory rate 22, blood pressure 107/67, oxygen saturati on 94% on 2 L nasal cannula oxygen. Height 5 feet 1 inch, weight 169 pounds. General: Awake, alert, oriented, not in distress. HEENT: Head atraumatic, normocephalic. Conjunctivae nonerythematous. Sclerae white. Mouth, no thr ush or edema noted. Ears/Nose, no mass, lesion, discharge noted. Neck: Supple. No JVD, lymph nodes, bruit, thyromegaly noted. Lungs: Shows some scattered wheezing in her lung romo. Not using accessory muscles of respiration . Heart: Normal heart sounds, no murmur or gallop. Abdomen: Soft, bowel sounds normal. No guarding, rigidity, tenderness, mass, hepatosplenomegaly, dis tention, or bruit noted. Extremities: No leg edema. No calf tenderness. Skin: No rash, ulcer, cellulitis. Lymphatics: No lymph node enlargement in neck, supraclavicular, infraclavicular region. Neuro: No focal neurological deficit. Chest: Unremarkable. External Genitalia: Deferred. Rectal: Deferred. Laboratory Data: WBC 4.9, hemoglobin 15.6, platelets 195. Sodium 138, potassium 3.8, chloride 106, bicarb 28, BUN 6, creatinine 0.69, glucose 173, lactic acid 1.3. Liver function tests unremarkable. Troponin 3.7 on the first set, second set less than 3. Chest x-ray shows evidence of bibasilar line ar opacity, which could be atelectasis versus infiltrate. COVID-19 test negative. Impression: 1.Acute exacerbation of COPD. 2.Rule out pneumonia. 3.Hypertension. 4.Type 2 diabetes mellitus. 5.Peripheral vascular disease. 6.Mixed hyperlipidemia. 7.Hypothyroidism. 8.Allergic rhinitis. 9.Gastroesophageal reflux disease. Plan: We will go ahead and admit the patient to hospital for further evaluation and management of th is problem. The patient is appropriate for inpatient and is expected to spend 2 midnights in [facility]. For COPD exacerbation, we will go ahead and treat her with steroid. She received 60 mg of predni sone in the emergency room and starting tomorrow, we will continue prednisone 20 mg twice a day. Con tinue oxygen right now. Hopefully, we can wean off oxygen starting tomorrow. Nebulizer treatment wi ll be given using Xopenex per order and I have ordered Dulera inhaler since we do not have Trelegy in haler available in the hospital. We will give antibiotic which will be Levaquin which was started in emergency room. I have recommended the patient 1 more time today in the hospital room to quit chris corona and I have done this multiple times on outpatient basis, but in spite of that, the patient has dec ided to continue to smoke and her long-term prognosis will be poor in view of significant COPD proble m with ongoing smoking history. For hypertension, no need for further intervention except monitoring of her blood pressure and if necessary, make adjustment on medication. For hyperlipidemia, we will continue her statin therapy and no need for any further intervention. For her allergic rhinitis, she is on montelukast, which we will continue that per order and no need for any further intervention. Diabetes will not require any intervention except monitoring of blood sugar and sliding scale insulin per order and continuation of her medication. DVT prophylaxis will be given using Lovenox per order . I will see her tomorrow morning for followup. Total time spent 85 minutes including review of last office visit record from March 13, 2024, comm unication with emergency room physician, review of emergency room visit record, and performing today' s evaluation and management. HOWARD/PAOLA Voice ID: [id number]
[2024-04-24 06:24] LABS: Absolute Lymphocytes (CBC) 3.5 K/uL (0.7-4.9); Absolute Monocytes 0.7 K/uL (0.1-1.3); Absolute Neutrophil 2.5 K/uL (1.8-8.0); Basophils % 0.3 % (0-1.3); Eosinophils % 0.2 % (0-4.4); Hematocrit 42.4 % (36.0-45.0); Hemoglobin 14.1 g/dL (12.0-15.0); MCH 33.8 pg (27.0-35.0); MCHC 33.2 g/dL (32.0-36.0); MCV 101.8 fL (80-100); MPV 8.9 fL (7.6-11.3); Monocytes % 10.4 % (3.3-12.3); Neutrophils % 37.1 % (41.7-73.7); Nucleated Red Blood Cells % 0.2 % (0-0); Platelets 214 thou/uL (152-406); RBC Red Blood Cell Count 4.16 M/uL (3.86-4.86)
[2024-04-24 06:48] LABS: Anion Gap 7.7 mEq/L (5.0-15.0); Potassium 3.7 mEq/L (3.5-5.1)
[2024-04-24] MEDS: IPRATROPIUM BROM 0.5MG/2.5ML NEB PRN (07:30)
[2024-04-24 08:34] VITALS: BP 99/47; TEMP 97.6
[2024-04-24] MEDS: ASPIRIN EC 81 MG TAB PO SCH (09:17)
[2024-04-24] MEDS: predniSONE 20 MG TAB PO ONE (09:17)
[2024-04-24] MEDS: MONTELUKAST 10 MG TAB PO SCH (09:17)
--- NOTE | 2024-04-25 04:53 | DS ---
Date of Discharge: 04/24/2024 Disposition: Discharged to go home. Physical Examination: HEENT: Unremarkable. Lungs: Clear to auscultation. Heart: Sounds normal. Abdomen: Soft. Bowel sounds normal. No guarding, rigidity, tenderness, distention. Extremities: No leg edema. Laboratory Data: Yesterday, WBC 4.9, hemoglobin 15.6, platelets 195. Today, WBC 6.7, hemoglobin 14. 1, platelets 214. For chemistry yesterday, sodium 138, potassium 3.8, chloride 106, bicarb 28, BUN 6 , creatinine 0.69, glucose 173, lactic acid 1.3. Liver function tests unremarkable. First troponin 3.7, second troponin less than 3. ProBNP yesterday 33, today 104. Her chemistry today, sodium 141, potassium 3.7, chloride 109, bicarb 28, BUN 9, creatinine 0.67, glucose 99. Hospital Course: This is a 58-year-old female patient, who came into emergency room with complaints of cough, congestion, fever, and shortness of breath. Please see dictated H and P for more informati on. After the patient was evaluated in the emergency room, she was admitted to the hospital with acu te exacerbation of COPD. The patient received oxygen nebulizer treatment, oral prednisone 60 mg, and Levaquin yesterday in the emergency room. She was admitted to the hospital. Overall, her condition has improved. This morning when I saw her, no new complaints or problems reported by her, and since the patient's condition has improved, decision was made to discharge her to go home in stable condit ion with following discharge medications and instructions. Her chest x-ray had shown bibasilar linea r opacity, which could be atelectasis or early infiltrate. The patient continues to smoke and I have advised her to quit smoking during this hospitalization and multiple times prior to this hospital ad mission on outpatient basis, but so far, the patient has elected to continue to smoke. Final Diagnoses: 1.Acute exacerbation of COPD. 2.Rule out pneumonia. 3.Hypertension. 4.Type 2 diabetes mellitus. 5.Mixed hyperlipidemia. 6.Peripheral vascular disease. 7.Hypothyroidism. 8.Allergic rhinitis. 9.Gastroesophageal reflux disease. Discharge Medications And Instructions: 1.Continue all prior home medications. 2.Start Levaquin 500 mg 1 tablet by mouth daily for 1 week, take it with food. 3.Prednisone 5 mg take 4 tablets by mouth daily for 4 days, then 2 tablets by mouth daily for 4 days , then 1 tablet by mouth daily for 4 days, then stop. 4.Follow up at my office next week. Total time spent today 40 minutes. HOWARD/MODL Voice ID: [id number] Report ID: [id number]
--- NOTE | 2024-04-25 12:37 | EKG ---
Test Date: 2024-04-23 Test Time: 01:03:00 Mucker Cofferdam: LINO MEASUREMENT RESULTS: Intervals: Rate: 88 NH: 120 QRSD: 72 QT: 368 QTc: 445 Moro: P: 84 NH: 120 QRS: 79 T: 84 INTERPRETIVE STATEMENTS: Normal sinus rhythm Normal ECG Compared to ECG 07/26/2018 02:21:29 No significant changes Electronically Signed On 04-25-24 12:32:54 [employer] by Vimal Okeefe
== END 2024-04-24 10:09 | disposition home or self-care (01) ==
LOC: ER 23:50 → INTOOBSV 04-23 01:56 → ERHOLD 04-23 01:56 → 2ND 04-23 13:56
PROVIDERS: ADMIT Internal Medicine; ATTEND Internal Medicine
DX: J44.1 Chronic obstructive pulmonary disease with (acute) exacerbation (principal); I10 Essential (primary) hypertension; E11.9 Type 2 diabetes mellitus without complications; E78.2 Mixed hyperlipidemia; E03.9 Hypothyroidism, unspecified; I73.9 Peripheral vascular disease, unspecified; J30.9 Allergic rhinitis, unspecified; K21.9 Gastro-esophageal reflux disease without esophagitis; Z11.52 Encounter for screening for COVID-19; Z88.3 Allergy status to other anti-infective agents; Z88.0 Allergy status to penicillin
CPT/HCPCS: 87040 ×2; 85025 ×2; 81001; 80048 ×2; 36415 ×2; 83735; 85610; 80076; 83605; 84484 ×2; 83880 ×2; 87807; 87804 ×2; 71045; 94640 ×4; 94760 ×4; 87811; J7512 ×2; J3535; J7644 ×5; J1650; J7614 ×6; J2919; J7040; 93005; 96365; 99285; G0378; J7613

== ENCOUNTER 2024-06-16 15:49 | Inpatient (IN) | payer OTHER ==
[2024-06-16] MEDS ORDERED: IPRATROPIUM BROM 0.5MG/2.5ML ONE ×2 (16:26→19:31)
[2024-06-16] MEDS ORDERED: LEVALBUTEROL 1.25 MG/3 ML NEB ONE ×2 (16:26→19:31)
[2024-06-16] MEDS ORDERED: predniSONE 20 MG TAB ONE (16:26)
--- NOTE | 2024-06-16 16:50 | RAD REPORT ---
Procedure: Chest Pa And Lat (2 Views) HISTORY: Cough COMPARISON: March 2024 FINDINGS: The lungs appear clear of acute infiltrate. Lungs are moderately hyperaerated. No significant pleural effusion noted. The heart is mildly enlarged. . IMPRESSION: COPD without visualization of an acute abnormality
[2024-06-16 16:58] LABS: Absolute Basophils 0.1 K/uL (0-0.5); Absolute Eosinophils 0.1 K/uL (0-0.5); Absolute Lymphocytes (CBC) 3.5 K/uL (0.7-4.9); Absolute Monocytes 1.2 K/uL (0.1-1.3); Absolute Neutrophil 10.5 K/uL (1.8-8.0); Basophils % 0.7 % (0-1.3); Eosinophils % 0.4 % (0-4.4); Hematocrit 46.9 % (36.0-45.0); Hemoglobin 16.1 g/dL (12.0-15.0); Lymphocytes % 22.9 % (15.3-44.8); MCH 34.1 pg (27.0-35.0); MCHC 34.3 g/dL (32.0-36.0); MCV 99.5 fL (80-100); Monocytes % 7.7 % (3.3-12.3); Neutrophils % 68.3 % (41.7-73.7); Nucleated Red Blood Cells % 0.1 % (0-0); Platelets 313 thou/uL (152-406); RBC Red Blood Cell Count 4.72 M/uL (3.86-4.86); Red Cell Distribution Width 13.9 % (12.1-15.2)
[2024-06-16 17:07] LABS: PT Prothrombin Time 10.8 SECONDS (10-13.0); PTT, Activated Partial Thromb 27.5 SECONDS (27.2-37.4); Protime INR 0.94
[2024-06-16 17:18] LABS: Albumin 3.7 g/dL (3.4-5.0); Albumin/Globulin Ratio 0.9 (1.1-1.8); Anion Gap 6.7 mEq/L (5.0-15.0); Bilirubin Total 0.3 mg/dL (0.2-1.0); Potassium 3.7 mEq/L (3.5-5.1); Protein, Total 7.7 g/dL (6.4-8.2)
--- NOTE | 2024-06-16 18:30 | RAD REPORT ---
EXAMINATION: US bilateral LOWER EXTREMITY VENOUS DOPPLER CLINICAL INDICATION: Leg swelling TECHNIQUE: Sonographic evaluation of the veins of the lower extremity bilaterally formed.Grayscale, c olor and spectral analysis performed on all vessels COMPARISON 2023 FINDINGS: The common femoral, superficial femoral, greater saphenous, popliteal and posterior tibial veins bila terally are compressible and demonstrate augmentation. Doppler demonstrates good flow. IMPRESSION: No evidence of deep venous thrombosis involving either lower extremity
--- NOTE | 2024-06-16 19:03 | ER ---
Nurse's Notes [facility] Name: Amanda Gross Age: 59 yrs Sex: Female : 1965 Arrival Date: 06/16/2024 Time: 15:49 Bed 16 Private MD: Sage De La Torre Diagnosis: COPD/ Chronic obstructive pulmonary disease with (acute) exacerbation Presentation: 06/16 15:56 Chief complaint: Patient states: she was diagnosed with strep throat 06/14/2024 ap3 and has been on antibiotics, however patient states she is having increased shortness of breath. Coronavirus screen: At this time, the client does not indicate any symptoms associated with coronavirus-19. Ebola Screen: No symptoms or risks identified at this time. Initial Sepsis Screen: Does the patient meet any 2 criteria? HR > 90 bpm. Does the patient have a suspected source of infection? No. Patient's initial sepsis screen is negative. Risk Assessment: Do you want to hurt yourself or someone else? Patient reports no desire to harm self or others. Onset of symptoms was June 13, 2024. 15:56 Method Of Arrival: Wheelchair ap3 15:56 Acuity: MEHNAZ 3 ap3 Triage Assessment: 15:58 General: Appears ill, Behavior is calm, cooperative, appropriate for age. Pain: Denies ap3 pain. Neuro: Level of Consciousness is awake, alert, obeys commands, Oriented to person, place, time, situation, Appropriate for age. Cardiovascular: Patient's skin is warm and dry. Respiratory: Reports shortness of breath cough that is labored breathing Airway is patent Respiratory effort is even, unlabored, Onset: The symptoms/episode began/occurred gradually. Historical: - Allergies: 15:58 Amoxicillin; ap3 15:58 Atarax; ap3 15:58 Doxycycline; ap3 15:58 HYDROCODONE; ap3 15:58 steroids; ap3 15:58 Sulfa (Sulfonamide Antibiotics); ap3 - PMHx: 15:58 Cholelithiasis; Cholelithiasis; Diverticulitis; GERD; High Cholesterol; Hypertension; ap3 Hypothyroidism; Kidney stones; RIGHT RENAL ART ANUR; TUMOR REMOVAL FROM CHIN; - PSHx: 15:58 section; Cholecystectomy; Total abdominal hysterectomy; ap3 - Immunization history:: Client reports having NOT received the Covid vaccine. Flu vaccine is not up to date. - Infectious Disease History:: Denies. - Social history:: Smoking status: Patient reports the use of cigarette tobacco products, smokes two packs cigarettes per day. Screenin:58 [facility] ED Fall Risk Assessment (Adult) History of falling in the last 3 months, ap3 including since admission No falls in past 3 months (0 pts) Confusion or Disorientation No (0 pts) Intoxicated or Sedated No (0 pts) Impaired Gait No (0 pts) Mobility Assist Device Used No (0 pt) Altered Elimination No (0 pt) Score/Fall Risk Level 0 - 2 = Low Risk Oriented to surroundings, Maintained a safe environment, Educated pt \T\ family on fall prevention, incl call for assistance when getting out of bed, Assessed \T\ reinforced patient's understanding of fall precautions, Hourly rounding (assess needs \T\ fall precautionary measures) done, Used ambulatory aids as needed (educated on \T\ assisted with). Abuse screen: Denies threats or abuse. Nutritional screening: No deficits noted. Tuberculosis screening: No symptoms or risk factors identified. Assessment: 16:15 General: Appears uncomfortable, ill, Behavior is cooperative, appropriate for age, me1 anxious, Reports she was diagnosed with strep throat 06/14/2024 and has been on antibiotics, however patient states she is having increased shortness of breath. Pain: Denies pain. Neuro: Level of Consciousness is awake, alert, obeys commands, Oriented to person, place, time, situation, Appropriate for age. Cardiovascular: Patient's skin is warm and dry. Cardiovascular: Rhythm is regular. Respiratory: Airway is patent Trachea midline Respiratory effort is labored, pursed lip, using tripod position, Respiratory pattern is tachypnea Breath sounds with wheezes bilaterally. GI: No signs and/or symptoms were reported involving the gastrointestinal system. : No signs and/or symptoms were reported regarding the genitourinary system. EENT: No signs and/or symptoms were reported regarding the EENT system. Derm: Skin is intact, is healthy with good turgor, Skin is pink, warm \T\ dry. Musculoskeletal: No signs and/or symptoms reported regarding the musculoskeletal system. Vital Signs: 15:56 BP 117 / 87; Pulse 108; Resp 19; Temp 98.3; Pulse Ox 97% on R/A; Weight 79.38 kg; ap3 Height 5 ft. 1 in. ; 17:00 BP 128 / 94; Pulse 105; Resp 20; Pulse Ox 96% ; me1 18:00 BP 123 / 85; Pulse 88; Resp 20; Pulse Ox 96% on R/A; me1 21:04 BP 122 / 88; Pulse 90; Resp 22; Pulse Ox 95% on 2 lpm NC; vc1 15:56 Body Mass Index 33.07 (79.38 kg, 154.94 cm) ap3 ED Course: 15:51 Patient arrived in ED. rg4 15:51 Sage De La Torre MD is Private Physician. rg4 15:54 Matt Corley FNP-C is PHCP. dr5 15:54 Kamilah Barrera MD is Attending Physician. dr5 15:57 Triage completed. ap3 15:59 Arm band placed on left wrist. ap3 16:14 Michelle Maldonado, RN is Primary Nurse. me1 16:15 Patient has correct armband on for positive identification. Bed in low position. Call me1 light in reach. Side rails up X2. Provided Education on: POC. Verbalized understanding.. Client placed on continuous cardiac and pulse oximetry monitoring. NIBP monitoring applied. tugboat dispatcher on. Pulse ox on. NIBP on. 16:15 No provider procedures requiring assistance completed. me1 16:31 Chest Pa And Lat (2 Views) XRAY In Process Unspecified. EDMS 16:46 Initial lab(s) drawn, by me, sent to lab. First set of blood cultures drawn by wy. me1 16:50 Inserted saline lock: 22 gauge in right antecubital area, using aseptic technique. me1 16:58 Second set of blood cultures drawn. me1 16:58 Blood Culture Adult (2) Sent. me1 16:58 CBC with Diff Sent. me1 16:58 CMP Sent. me1 16:58 Lactate w/ 2H reflex if indic. Sent. me1 16:58 Protime (+inr) Sent. me1 16:58 Ptt, Activated Sent. me1 18:14 PHCP role handed off by Matt Corley FNP-C kb 18:14 Lien Johnson FNP-C is PHCP. kb 18:19 US Extremity Venous W Compression [place] In Process Unspecified. EDMS 19:02 Sage De La Torre MD is Hospitalizing Provider. kb 21:04 Patient admitted, IV remains in place. vc1 Administered Medications: 16:31 Drug: Levalbuterol Inhalation 1.25 mg Inhalation once Route: Inhalation; me1 18:06 Follow up: Response: No adverse reaction; Wheezing diminished me1 16:31 Drug: predniSONE PO 60 mg PO once Route: PO; me1 18:06 Follow up: Response: No adverse reaction me1 16:31 Drug: Ipratropium Inhalation Aerosol 0.5 mg Inhalation once Route: Inhalation; me1 18:06 Follow up: Response: No adverse reaction; Wheezing diminished me1 19:48 Drug: Levalbuterol Inhalation 1.25 mg Inhalation once Route: Inhalation; vc1 19:48 Drug: Ipratropium Inhalation Aerosol 0.5 mg Inhalation once Route: Inhalation; vc1 19:52 Drug: levofloxacin IVPB 500 mg 100 ml IVPB once over 60 mins Volume: 100 ml; Route: vc1 IVPB; Infused Over: 60 mins; Site: right antecubital; Medication: 16:15 VIS not applicable for this client. me1 Outcome: 19:02 Decision to Hospitalize by Provider. kb 21:03 Admitted to Tele accompanied by tech, via stretcher, room 420, with oxygen, with chart, vc1 21:03 Condition: stable 21:03 Instructed on the need for admit, 21:05 Patient left the ED. vc1 Signatures: Dispatcher [employer] [facility] Lien Johnson, EARLY BREASTFEEDING CARE SPECIALIST-C EARLY BREASTFEEDING CARE SPECIALIST-Ckb Lady Maza rg4 Mildred Marcelino RN RN ap3 Jessica Blum RN RN vc1 Michelle Maldonado RN RN me1 Matt Corley, EARLY BREASTFEEDING CARE SPECIALIST-C EARLY BREASTFEEDING CARE SPECIALIST-Cdr5 Corrections: (The following items were deleted from the chart) 17:32 15:56 Chief complaint: Patient states: she was diagnosed with strep throat me1 06/14/2024 and has been on antibiotics, however patient states she is having increased shortness of breath. ap3
--- NOTE | 2024-06-16 19:03 | EDPHYS ---
Physician Documentation [facility] Name: Amanda Gross Age: 59 yrs Sex: Female : 1965 Arrival Date: 06/16/2024 Time: 15:49 Bed 16 Private MD: Sage De La Torre ED Physician Kamilah Barrera HPI: 06/16 16:23 This 59 yrs old Female presents to ER via Wheelchair with complaints of dr5 Breathing Difficulty, Congestion. 16:23 The patient has shortness of breath at rest. dr5 16:24 Patient is a 59-year-old female with history of COPD, diverticulitis, GERD, dr5 hyperlipidemia, hypertension, hypothyroid coming in shortness of breath and sore throat with productive cough for the past [address] De La Torre yesterday and was recommended to come into the ER last night. Patient is currently being treated for strep throat with azithromycin with mild relief.. Historical: - Allergies: 15:58 Amoxicillin; ap3 15:58 Atarax; ap3 15:58 Doxycycline; ap3 15:58 HYDROCODONE; ap3 15:58 steroids; ap3 15:58 Sulfa (Sulfonamide Antibiotics); ap3 - PMHx: 15:58 Cholelithiasis; Cholelithiasis; Diverticulitis; GERD; High Cholesterol; Hypertension; ap3 Hypothyroidism; Kidney stones; RIGHT RENAL ART ANUR; TUMOR REMOVAL FROM CHIN; - PSHx: 15:58 section; Cholecystectomy; Total abdominal hysterectomy; ap3 - Immunization history:: Client reports having NOT received the Covid vaccine. Flu vaccine is not up to date. - Infectious Disease History:: Denies. - Social history:: Smoking status: Patient reports the use of cigarette tobacco products, smokes two packs cigarettes per day. ROS: 16:24 Constitutional: as per hpi dr5 Exam: 16:24 Constitutional: This is a well developed, well nourished patient who is awake, alert, dr5 and in no acute distress. Head/Face: Normocephalic, atraumatic. ENT: Nares patent. No nasal discharge, no septal abnormalities noted. Tympanic membranes are normal and external auditory canals are clear. Oropharynx with no redness, swelling, or masses, exudates, or evidence of obstruction, uvula midline. Mucous membranes moist. Neck: Trachea midline, no thyromegaly or masses palpated, and no cervical lymphadenopathy. Supple, full range of motion without nuchal rigidity, or vertebral point tenderness. No Meningismus. Chest/axilla: Normal chest wall appearance and motion. Nontender with no deformity. No lesions are appreciated. Cardiovascular: Regular rate and rhythm with a normal S1 and S2. Normal PMI, no JVD. No pulse deficits. 16:24 Respiratory: mild respiratory distress is noted, moderate respiratory distress is noted, Respirations: labored breathing, Breath sounds: wheezing: inspiratory expiratory is heard diffusely, Respiratory rate: 26 Vital Signs: 15:56 BP 117 / 87; Pulse 108; Resp 19; Temp 98.3; Pulse Ox 97% on R/A; Weight 79.38 kg; ap3 Height 5 ft. 1 in. ; 17:00 BP 128 / 94; Pulse 105; Resp 20; Pulse Ox 96% ; me1 18:00 BP 123 / 85; Pulse 88; Resp 20; Pulse Ox 96% on R/A; me1 21:04 BP 122 / 88; Pulse 90; Resp 22; Pulse Ox 95% on 2 lpm NC; vc1 15:56 Body Mass Index 33.07 (79.38 kg, 154.94 cm) ap3 MDM: 16:13 Medical Screening Exam initiated dr5 17:56 ED course: Spoke with Dr. De La Torre. Dr. De La Torre requesting bilateral lower venous extremity dr5 ultrasound and will call back with results for further plan.. 19:00 Differential diagnosis: asthma, Chronic Obstructive Pulmonary Disease pneumonia, kb pulmonary edema. Data reviewed: vital signs, nurses notes. Consideration of Admission/Observation Patient was admitted/placed on observation. Escalation of care including admission/observation considered. Management of patient was discussed with the following: Primary Care Provider: Dr De La Torre accepts pt for admission. Wants inpatient with levaquin 500mg IV daily, lovenox 40mg Q HS, and scheduled neb treatments. . External Records Reviewed: Inpatient record: reviewed previous H\T\P. Care significantly affected by the following chronic conditions: Chronic Obstructive Pulmonary Disease. Counseling: I had a detailed discussion with the patient and/or guardian regarding the historical points, exam findings, and any diagnostic results supporting the discharge/admit diagnosis, lab results, radiology results, the need for further work-up and treatment in the hospital. 06/16 16:22 Order name: Blood Culture Adult (2) dr5 06/16 16:22 Order name: CBC with Diff; Complete Time: 17:02 [facility] 06/16 16:22 Order name: CMP; Complete Time: 17:21 [facility] 06/16 16:22 Order name: Lactate w/ 2H reflex if indic.; Complete Time: 18:19 [facility] 06/16 16:22 Order name: Protime (+inr); Complete Time: 17:13 [facility] 06/16 16:22 Order name: Ptt, Activated; Complete Time: 17:13 [facility] 06/16 16:22 Order name: Chest Pa And Lat (2 Views) XRAY; Complete Time: 17:02 06/16 17:24 Order name: US Extremity Venous W Compression Napoleon; Complete Time: 18:45 [facility] 06/16 16:22 Order name: Accucheck; Complete Time: 17:32 [facility] 06/16 16:22 Order name: Cardiac monitoring; Complete Time: 17:32 [facility] 06/16 16:22 Order name: IV Saline Lock - Large Bore; Complete Time: 16:58 [facility] 06/16 16:22 Order name: Labs collected and sent; Complete Time: 16:58 [facility] 06/16 16:22 Order name: O2 Per Protocol; Complete Time: 16:58 [facility] 06/16 16:22 Order name: O2 Sat Monitoring; Complete Time: 16:58 [facility] 06/16 16:22 Order name: Vital Signs; Complete Time: 16:58 [facility] Administered Medications: 16:31 Drug: Levalbuterol Inhalation 1.25 mg Inhalation once Route: Inhalation; me1 18:06 Follow up: Response: No adverse reaction; Wheezing diminished me1 16:31 Drug: predniSONE PO 60 mg PO once Route: PO; me1 18:06 Follow up: Response: No adverse reaction me1 16:31 Drug: Ipratropium Inhalation Aerosol 0.5 mg Inhalation once Route: Inhalation; me1 18:06 Follow up: Response: No adverse reaction; Wheezing diminished me1 19:48 Drug: Levalbuterol Inhalation 1.25 mg Inhalation once Route: Inhalation; vc1 19:48 Drug: Ipratropium Inhalation Aerosol 0.5 mg Inhalation once Route: Inhalation; vc1 19:52 Drug: levofloxacin IVPB 500 mg 100 ml IVPB once over 60 mins Volume: 100 ml; Route: vc1 IVPB; Infused Over: 60 mins; Site: right antecubital; Disposition Summary: 06/16/24 19:02 Hospitalization Ordered Notes: Hospitalization Status: Inpatient Admission kb Provider: Sage De La Torre Location: Telemetry/MedSurg (Inpatient) kb Condition: Stable kb Problem: an acute exacerbation kb Symptoms: are unchanged kb Bed/Room Type: Standard kb Room Assignment: 420(06/16/24 19:19) [facility] Diagnosis - COPD/ Chronic obstructive pulmonary disease with (acute) exacerbation kb Forms: - Medication Reconciliation Form kb - SBAR form kb - Leadership Thank You Letter kb Signatures: Dispatcher [employer] EDMS Lien Johnson, DINING ROOM COORDINATOR-C DINING ROOM COORDINATOR-Ckb Mildred Marcelino RN RN ap3 Jessica Blum RN RN vc1 Michelle Maldonado RN RN me1 Betina Collazo [facility] Matt Corley DINING ROOM COORDINATOR-C DINING ROOM COORDINATOR-Cdr5 Corrections: (The following items were deleted from the chart) 16:23 16:23 Chest Pa And Lat (2 Views)+[email or web address] [facility]. [facility]:19 19:02 kb [facility]
[2024-06-16 22:29] VITALS: BMI 33.0
[2024-06-16] MEDS: Levofloxacin500mg IV 500 MG/100 ML BAG IV SCH (22:52)
[2024-06-16] MEDS: predniSONE 20 MG TAB PO SCH (22:52)
[2024-06-16] MEDS: ENOXAPARIN 40 MG/0.4 ML SQ SCH (23:51)
[2024-06-16] MEDS: Levofloxacin500mg IV 500 MG/100 ML BAG IV ONE (23:51)
[2024-06-17] MEDS: ALBUTEROL 2.5 MG/3 ML NEB SOL NEB SCH (01:23)
[2024-06-17] MEDS: IPRATROPIUM BROM 0.5MG/2.5ML NEB SCH (01:23)
[2024-06-17 06:12] LABS: Absolute Lymphocytes (CBC) 2.1 K/uL (0.7-4.9); Absolute Monocytes 0.9 K/uL (0.1-1.3); Absolute Neutrophil 9.9 K/uL (1.8-8.0); Basophils % 0.3 % (0-1.3); Eosinophils % 0.1 % (0-4.4); Hematocrit 42.6 % (36.0-45.0); Hemoglobin 14.7 g/dL (12.0-15.0); MCH 34.3 pg (27.0-35.0); MCHC 34.5 g/dL (32.0-36.0); MCV 99.7 fL (80-100); MPV 8.9 fL (7.6-11.3); Monocytes % 7.3 % (3.3-12.3); Neutrophils % 76.3 % (41.7-73.7); Nucleated Red Blood Cells % 0.1 % (0-0); Platelets 282 thou/uL (152-406); RBC Red Blood Cell Count 4.27 M/uL (3.86-4.86); Red Cell Distribution Width 13.8 % (12.1-15.2)
[2024-06-17 06:25] LABS: Anion Gap 6.5 mEq/L (5.0-15.0); Potassium 4.5 mEq/L (3.5-5.1)
[2024-06-17] MEDS: SITAGLIPTIN PHOSPHATE 50 MG PO SCH (09:00)
[2024-06-17] MEDS: MONTELUKAST 10 MG TAB PO SCH (09:05)
[2024-06-17] MEDS: ATORVASTATIN 20 MG TAB PO SCH (09:05)
[2024-06-17] MEDS: ASPIRIN EC 81 MG TAB PO SCH (09:05)
[2024-06-17] MEDS: SIMETHICONE 80 MG CHEWABLE TAB PO PRN (20:51)
--- NOTE | 2024-06-17 20:59 | HP ---
Date of Admission: 06/16/2024 Chief Complaint: Cough, congestion, sore throat, shortness of breath, wheezing, and leg swelling. History Of Present Illness: This is a 59-year-old female patient with history of COPD and continues to smoke. Called office this week on with cough, congestion, and was asked to come in to se lionel olmedo and she decided not to come to see me, but later on that evening she ended up going to [facility] and reports that she was diagnosed as having strep throat and she was sent home with some a ntibiotic which was Z-Dayne and Mucinex. The patient says that she did not get better, continued to ngo ve problem with cough, congestion, wheezing, shortness of breath, and started to have swelling of her left leg. So, she contacted me on Tuesday evening about this and she was asked to come to emergency room, which apparently she did not come to emergency room until yesterday evening, which is Tuesday and after she was evaluated in the ER, she was admitted to the hospital. Her venous Doppler of both legs was done in the emergency room, which was negative for DVT, and the patient was admitted to the hospital with acute exacerbation of COPD. We started her on steroid, antibiotic, and overall she is feeling better with that. She is still having some trouble coughing up mucus, but it is somewhat bet ter. Physical Examination: Vital Signs: Temperature 98.1, pulse 88, respiratory rate 18, blood pressure 104/57, oxygen saturati on 98% on room air. Height 5 feet 1 inch, weight 175 pounds. General: Awake, alert, oriented, not in distress. HEENT: Head atraumatic, normocephalic. Conjunctivae nonerythematous. Sclerae white. Mouth, no thr ush or edema noted. Ears/Nose, no mass, lesion, discharge noted. Neck: Supple. No JVD, lymph nodes, bruit, thyromegaly noted. Lungs: Bilateral good equal air entry. Not in any respiratory distress. Presence of some scattered wheezing in both lungs scattered in all lung romo. Heart: Normal heart sounds, no murmur or gallop. Abdomen: Soft, bowel sounds normal. No guarding, rigidity, tenderness, mass, hepatosplenomegaly, dis tention, or bruit noted. Extremities: No leg edema. No calf tenderness. Skin: No rash, ulcer, cellulitis. Lymphatics: No lymph node enlargement in neck, supraclavicular, infraclavicular region. Neuro: No focal neurological deficit. Chest: Unremarkable. External Genitalia: Deferred. Rectal: Deferred. Vascular: Patient's peripheral pulses both dorsalis pedis pulse in both feet is 2+ and posterior tib ial pulse in left foot is 1+, right foot is 2+. Laboratory Data: Yesterday, upon admission, WBC 15.4, hemoglobin 16.1, platelets 303. Today, WBC 13 , hemoglobin 14.7, and platelets 282. For chemistry, yesterday, sodium 141, potassium 3.7, chloride 107, bicarb 31, BUN 9, creatinine 0.72, glucose 108. Liver function tests unremarkable. Today, sodi um 139, potassium 4.5, chloride 107, bicarb 30, BUN 13, creatinine 0.65, glucose 172. Chest x-ray, n o acute cardiopulmonary changes and it does show changes of COPD. Venous Doppler of both legs was ne gative for DVT. Impression: 1. Acute exacerbation of chronic obstructive pulmonary disease. 2. Tobacco dependence. 3. Leg swelling, resolved. 4. Rule out peripheral vascular disease. 5. Hypertension. 6. Type 2 diabetes mellitus. 7. Mixed hyperlipidemia. 8. Hypothyroidism. 9. Allergic rhinitis. 10. Gastroesophageal reflux disease. Plan: We will admit patient to hospital for further evaluation and management of this problem. The patient is appropriate for inpatient and is expected to spend 2 midnights in the hospital. For her C OPD exacerbation, we will treat it with the nebulizer treatment, antibiotic which is Levaquin and ora l prednisone per order. The patient continues to smoke about a pack per day as she says and I have a dvised her today and multiple times in the past to quit smoking. Unfortunately, she has elected to [facility] to smoke and with ongoing smoking, her prognosis is going to be poor. I have instructed her that her oxygen saturation even though it is normal at rest, I would like to check her oxygen level w hile she is ambulating and see whether she drops her oxygen low enough to consider and qualify for ho vt oxygen or not, but whether she ends up getting on oxygen during this admission or any time in the future, she was instructed that she cannot smoke with oxygen in place due to risk of bodily injury an d fire, explained to her. For diabetes, we will manage it with continuation of her home medication w lucinda is Januvia. She takes montelukast for her allergies and we will continue that. For gastroesoph ageal reflux disease, she takes Dexilant and we will continue that. No need for further intervention . For hyperlipidemia, she is on atorvastatin and we will continue that and no need for further inter vention on it. We will get an arterial Doppler on her lower extremity for evaluation of peripheral v ascular disease. I will see her tomorrow for followup. HOWARD/MODL Voice ID: [id number]
[2024-06-18 04:10] VITALS: O2SAT 93
[2024-06-18 09:22] VITALS: BP 135/84; TEMP 97.9
--- NOTE | 2024-06-19 06:03 | DS ---
Date of Discharge: 06/18/2024 Disposition: Discharged to go home. Physical Examination: HEENT: Unremarkable. Lungs: Clear to auscultation. Heart: Sounds normal. Abdomen: Soft. Bowel sounds normal. No guarding, rigidity, tenderness, distention. Extremities: No leg edema. Laboratory Data: Final Diagnoses: 1. Acute exacerbation of chronic obstructive pulmonary disease. 2. Chronic respiratory failure with hypoxia. 3. Tobacco dependence. 4. Leg swelling, resolved. 5. Hypertension. 6. Type 2 diabetes mellitus. 7. Mixed hyperlipidemia. 8. Hypothyroidism. 9. Allergic rhinitis. 10. Gastroesophageal reflux disease. Discharge Medications And Instructions: Continue prior home medication except following changes: 1. Stop azithromycin. 2. Start Levaquin 500 mg daily for 5 days, take it with food. 3. Start prednisone 10 mg, take 3 tablets daily for 3 days, then 2 tablets daily for 3 days, then 1 t ablet daily for 3 days, then stop, take it with food. 4. Follow up at my office next week. 5. Do not smoke. Hospital Course: This is a 59-year-old female patient who came into emergency room with cough, conge stion, shortness of breath, wheezing, and leg swelling. Please see dictated H and P for more informa tion. After patient was evaluated in the emergency room, her DVT study of the leg was negative for b lood clot. Chest x-ray showed changes of COPD, no pneumonia, and she was admitted to hospital with C OPD exacerbation. The patient was treated with nebulizer treatment, inhaler and oxygen as well as st eroids and antibiotics. Overall, her condition improved and I did talk to her in details and provide d counseling regarding importance of her to stop smoking completely as she reports that she is smokin g about 1 pack per day still. I had given her such recommendation in the past also on multiple occas ions, but she has elected to continue to smoke. Today, I also explained it to her regarding using ox ygen at home if she qualifies. Depending on her room air oxygen saturation level and she was instruc wendy that if she goes home with home oxygen, then she should not smoke as smoking with oxygen use may result in serious and fatal bodily injury. All these details were discussed with her. After I saw er, nurse was contacted to check her room air oxygen saturation at rest, it was around 94%, but with her walking in the hallway within 1 minute of walking her oxygen saturation dropped down to 87%. Aft er that, the patient refused to walk anymore as suggested by nursing staff, but at least the lowest o xygen saturation we saw was 87% on room air. With that, she would qualify for home oxygen, so Social Service consultation was requested to make arrangements for home oxygen at 2 L/minute and our plan w as to discharge her to go home once home oxygen is available, but subsequently, nurse contacted me an d informed me that the patient refuses to use oxygen and she does not want to go home with oxygen at all. So with that in mind, the patient was discharged to go home without oxygen because of the patie nt's denial to use home oxygen. Total time spent 45 minutes. HOWARD/MODL Voice ID: [id number] Report ID: [id number]
== END 2024-06-18 10:34 | disposition home or self-care (01) | DRG 191 ==
LOC: ER 15:49 → ERHOLD 19:05 → 4TH 20:27
PROVIDERS: ADMIT Internal Medicine; ATTEND Internal Medicine
DX: J44.1 Chronic obstructive pulmonary disease with (acute) exacerbation (principal); J96.11 Chronic respiratory failure with hypoxia; I10 Essential (primary) hypertension; E03.9 Hypothyroidism, unspecified; E78.2 Mixed hyperlipidemia; J30.9 Allergic rhinitis, unspecified; K21.9 Gastro-esophageal reflux disease without esophagitis; E11.9 Type 2 diabetes mellitus without complications; M79.89 Other specified soft tissue disorders; F17.210 Nicotine dependence, cigarettes, uncomplicated; Z88.1 Allergy status to other antibiotic agents; Z88.5 Allergy status to narcotic agent; Z88.2 Allergy status to sulfonamides; Z88.8 Allergy status to other drugs, medicaments and biological substances; Z90.49 Acquired absence of other specified parts of digestive tract; Z90.710 Acquired absence of both cervix and uterus; Z28.310 Unvaccinated for COVID-19
CPT/HCPCS: 36415; 71046; 80048; 80053; 82947; 83605; 85025; 85610; 85730; 87040; 93970; 94640; 94760; 96374; 99285; J1650; J7512; J7613; J7614; J7644

== ENCOUNTER 2024-06-18 18:44 | Observation (INO) | payer OTHER ==
--- NOTE | 2024-06-18 19:29 | EDPHYS ---
Physician Documentation [facility] Name: Amanda Gross Age: 59 yrs Sex: Female : 1965 Arrival Date: 06/18/2024 Time: 18:44 Bed 4 Private MD: MARTA Physician Naga Delgado HPI: 06/18 19:19 This 59 yrs old Female presents to ER via Wheelchair with complaints of Low valeri O2. 19:19 The patient has shortness of breath at rest, with light activity. Onset: The valeri symptoms/episode began/occurred just prior to arrival, today. Duration: The symptoms are continuous, and are steadily getting worse. The patient's shortness of breath is aggravated by coughing. The patient presents to the emergency department with wheezing, Current therapy: albuterol nebs, Pre-hospital care: oxygen. Modifying factors: The symptoms are alleviated by treatment from EMS personal including nebulizer treatment, the symptoms are aggravated by exertion, talking. Associated signs and symptoms: Pertinent positives: non-productive cough. Severity of symptoms: At their worst the symptoms were moderate in the emergency department the symptoms are unchanged. Associated signs and symptoms: The patient has no apparent associated signs or symptoms. Historical: - Allergies: 18:53 Amoxicillin; aa5 18:53 Atarax; aa5 18:53 Doxycycline; aa5 18:53 HYDROCODONE; aa5 18:53 steroids; aa5 18:53 Sulfa (Sulfonamide Antibiotics); aa5 - PMHx: 18:53 Cholelithiasis; Diverticulitis; GERD; High Cholesterol; Hypertension; Hypothyroidism; aa5 Kidney stones; RIGHT RENAL ART ANUR; TUMOR REMOVAL FROM CHIN; - PSHx: 18:53 section; Cholecystectomy; Total abdominal hysterectomy; aa5 ROS: 19:22 Constitutional: Negative for fever, chills, and weight loss, Eyes: Negative for injury, valeri pain, redness, and discharge, ENT: Negative for injury, pain, and discharge, Neck: Negative for injury, pain, and swelling, Cardiovascular: Negative for chest pain, palpitations, and edema, Abdomen/GI: Negative for abdominal pain, nausea, vomiting, diarrhea, and constipation, Back: Negative for injury and pain, : Negative for injury, bleeding, discharge, and swelling, MS/Extremity: Negative for injury and deformity, Skin: Negative for injury, rash, and discoloration, Neuro: Negative for headache, weakness, numbness, tingling, and seizure, 19:22 Constitutional: Negative for body aches, chills, fatigue, fever, malaise, poor PO intake, 19:22 Cardiovascular: Positive for palpitations, 19:22 Respiratory: Positive for cough, shortness of breath, wheezing, inspiratory, expiratory, 19:22 MS/extremity: Negative for acute changes, decreased range of motion, swelling, tenderness, 19:22 Neuro: Negative for altered mental status, Exam: 19:24 Constitutional: This is a well developed, well nourished patient who is awake, alert, valeri and in no acute distress. Head/Face: Normocephalic, atraumatic. Eyes: Pupils equal round and reactive to light, extra-ocular motions intact. Lids and lashes normal. Conjunctiva and sclera are non-icteric and not injected. Cornea within normal limits. Periorbital areas with no swelling, redness, or edema. ENT: Nares patent. No nasal discharge, no septal abnormalities noted. Tympanic membranes are normal and external auditory canals are clear. Oropharynx with no redness, swelling, or masses, exudates, or evidence of obstruction, uvula midline. Mucous membranes moist. Neck: Trachea midline, no thyromegaly or masses palpated, and no cervical lymphadenopathy. Supple, full range of motion without nuchal rigidity, or vertebral point tenderness. No Meningismus. Chest/axilla: Normal chest wall appearance and motion. Nontender with no deformity. No lesions are appreciated. Cardiovascular: Regular rate and rhythm with a normal S1 and S2. No gallops, murmurs, or rubs. Normal PMI, no JVD. No pulse deficits. Abdomen/GI: Soft, non-tender, with normal bowel sounds. No distension or tympany. No guarding or rebound. No evidence of tenderness throughout. Back: No spinal tenderness. No costovertebral tenderness. Full range of motion. Female : Normal external genitalia. Skin: Warm, dry with normal turgor. Normal color with no rashes, no lesions, and no evidence of cellulitis. MS/ Extremity: Pulses equal, no cyanosis. Neurovascular intact. Full, normal range of motion., bilateral aka Neuro: Awake and alert, GCS 15, oriented to person, place, time, and situation. Cranial nerves II-XII grossly intact. Motor strength 5/5 in all extremities. Sensory grossly intact. Cerebellar exam normal. Normal gait. Psych: Awake, alert, with orientation to person, place and time. Behavior, mood, and affect are within normal limits. 19:24 Respiratory: the patient does not display signs of respiratory distress, Respirations: labored breathing, that is mild, Breath sounds: bronchial sounds, that are moderate, are scattered, decreased breath sounds, that are moderate, are scattered, rhonchi, that are mild, are scattered, stridor, is not appreciated, + upper airway congestion. wheezing: inspiratory expiratory Respiratory rate: 26 19:48 ECG was reviewed by the Attending Physician. [facility] Vital Signs: 18:53 BP 137 / 99; Pulse 81; Resp 26 S; Temp 97.9(O); Pulse Ox 94% on R/A; aa5 19:06 BP 126 / 73; Pulse 77; Resp 21; Pulse Ox 98% on 3 lpm NC; al5 20:00 BP 127 / 93; Pulse 91; Resp 19; Pulse Ox 98% on 3 lpm NC; al5 21:00 BP 110 / 63; Pulse 85; Resp 21; Pulse Ox 98% on 3 lpm NC; al5 21:23 Weight 77.11 kg; Height 5 ft. 1 in. ; vk 21:23 Body Mass Index 32.12 (77.11 kg, 154.94 cm) vk MDM: 18:55 Medical Screening Exam initiated [facility] 19:25 Differential diagnosis: asthma, Bronchitis CHF exacerbation, Chronic Obstructive valeri Pulmonary Disease exercise-induced asthma, reactive airway, CHF, Myocardial Infarction pneumonia, pulmonary edema, reactive airway disease, Sepsis Unstable Angina. Antibiotic administration: Levaquin given. Immunization status: Influenza vaccine: within last 5 years. Data reviewed: vital signs, nurses notes, lab test result(s), EKG, radiologic studies, plain films. Consideration of Admission/Observation Patient was admitted/placed on observation. Escalation of care including admission/observation considered. I considered the following discharge prescriptions or medication management in the emergency department Medications were administered in the Emergency Department. See MAR. Independent interpretation of the following test(s) in the Emergency Department EKG: See my EKG interpretation above. Test considered but Not performed: CT: NO CT CHEST. Historians other than the Patient: Daughter/Son: DAUGHTER WELL INFORMED. PT WELL INFORMED. Care significantly affected by the following chronic conditions: Hypertension, Chronic Obstructive Pulmonary Disease, Obesity, GERD, GALLSTONES, DIVERTICULITIS. Counseling: I had a detailed discussion with the patient and/or guardian regarding the historical points, exam findings, and any diagnostic results supporting the discharge/admit diagnosis, the presence of at least one elevated blood pressure reading (>120/80) during this emergency department visit, lab results, radiology results, the need for further work-up and treatment in the hospital. 06/18 18:58 Order name: Basic Metabolic Panel; Complete Time: 20:01 [facility] 06/18 18:58 Order name: CBC with Diff; Complete Time: 20: [facility] 06/18 18:58 Order name: LFT's; Complete Time: 20: [facility] 06/18 18:58 Order name: Magnesium; Complete Time: 20: [facility] 06/18 18:58 Order name: NT PRO-BNP; Complete Time: 20: [facility] 06/18 18:58 Order name: PT-INR; Complete Time: 20: [facility] 06/18 18:58 Order name: Troponin HS; Complete Time: 20: [facility] 06/18 18:58 Order name: Blood Culture Adult (2) [facility] 06/18 18:58 Order name: Lactate w/ 2H reflex if indic.; Complete Time: 20:01 [facility] 06/18 18:58 Order name: ABG [facility] 06/18 20:00 Order name: RAD; Complete Time: 20:01 [facility]UT 06/18 18:58 Order name: Cardiac monitoring; Complete Time: 19:58 [facility] 06/18 18:58 Order name: EKG - Nurse/Tech; Complete Time: 19:58 [facility] 06/18 18:58 Order name: IV Saline Lock; Complete Time: 19:28 [facility] 06/18 18:58 Order name: Labs collected and sent; Complete Time: 19:28 [facility] 06/18 18:58 Order name: O2 Per Protocol; Complete Time: 19:28 [facility] 06/18 18:58 Order name: O2 Sat Monitoring; Complete Time: 19:28 [facility] EC:48 Rate is 88 beats/min. Rhythm is regular. QRS [place] is Normal. HI interval is normal. QRS valeri interval is normal. QT interval is normal. No Q waves. T waves are Normal. No ST changes noted. Clinical impression: NSR w/ Non-specific ST/T Changes and No evidence of ischemia. Interpreted by me. Reviewed by me. Administered Medications: 20:33 Drug: NS 0.9% IV 500 ml 500 ml IV at 1 bolus once; to be given as a bolus over 30 al5 minutes Volume: 500 ml; Route: IV; Rate: 1 bolus; Site: left forearm; 21:33 Follow up: Response: No adverse reaction; IV Status: Completed infusion; IV Intake: al5 500ml 20:33 Drug: Levalbuterol Inhalation 3.75 mg Inhalation once Route: Inhalation; al5 20:33 Drug: Ipratropium Inhalation Aerosol 0.5 mg Inhalation once Route: Inhalation; al5 20:33 Drug: MethylPrednisoLONE IVP 125 mg IVP once Route: IVP; Site: left forearm; al5 21:36 Follow up: Response: No adverse reaction al5 20:33 Drug: LevOfloxacin PO 750 mg PO once Route: PO; al5 21:36 Follow up: Response: No adverse reaction al5 20:33 Not Given (Duplicate Order): levalbuterol2.5 mg Inhalation once al5 21:32 Drug: Magnesium Sulfate IVPB 2 grams IVPB once over 1 hrs Route: IVPB; Infused Over: 1 al5 hrs; Site: left forearm; 21:36 Follow up: Response: No adverse reaction; IV Status: Infusion continued upon admission al5 21:33 Drug: NS 0.9% IV 1000 ml IV at 125 ml/hr once Route: IV; Rate: 125 ml/hr; Site: left al5 forearm; 21:36 Follow up: IV Status: Infusion continued upon admission al5 Disposition Summary: 06/18/24 19:29 Hospitalization Ordered Notes: Hospitalization Status: Observation valeri Provider: Karon De La Torre cha Location: Telemetry/MedSurg (observation) valeri Condition: Stable valeri Problem: new valeri Symptoms: have improved valeri Bed/Room Type: Standard valeri Room Assignment: 213(06/18/24 20:07) vk Diagnosis - Hypoxemia valeri - COPD/ Chronic obstructive pulmonary disease with (acute) exacerbation valeri - Dyspnea valeri Forms: - Medication Reconciliation Form valeri - SBAR form valeri - Leadership Thank You Letter valeri Signatures: Dispatcher [employer] Naga Naylor MD MD cha Calderon, Audri RN RN aa5 Suni Bo Amanda RN RN al5 Corrections: (The following items were deleted from the chart) 18:58 18:58 BASIC METABOLIC PANEL+C.LAB.BRZ ordered. EDMS EDMS 18:58 18:58 CBC+H.LAB.BRZ ordered. EDMS EDMS 18:58 18:58 HEPATIC FUNCTION+C.LAB.BRZ ordered. EDMS EDMS 18:58 18:58 MAGNESIUM+C.LAB.BRZ ordered. EDMS EDMS 18:58 18:58 PROBNP+C.LAB.BRZ ordered. EDMS EDMS 18:58 18:58 PROTIME (+INR)+COAG.LAB.BRZ ordered. EDMS EDMS 18:58 18:58 Troponin High Sensitivity+C.LAB.BRZ ordered. EDMS EDMS 18:58 18:58 BLOOD CULTURE*+BA.LAB.BRZ ordered. EDMS EDMS 18:58 18:58 LACTATE+C.LAB.BRZ ordered. EDMS EDMS 18:58 18:58 Chest Single View+RAD.RAD.BRZ ordered. EDMS EDMS 18:59 18:59 Arterial Blood Gas+RC.LAB.BRZ ordered. EDMS EDMS 20:07 19:29 valeri ryan
--- NOTE | 2024-06-18 19:29 | ER ---
Nurse's Notes [facility] Name: Amanda Gross Age: 59 yrs Sex: Female : 1965 Arrival Date: 06/18/2024 Time: 18:44 Bed 4 Private MD: Diagnosis: Hypoxemia;COPD/ Chronic obstructive pulmonary disease with (acute) exacerbation;Dyspnea Presentation: 06/18 18:53 Chief complaint: Pt's family states "she got released today and Dr. De La Torre sent us here aa5 because she need oxygen, her oxygen level goes down to 88%". Pt currently 92-94% during triage. Pt c/o SOB. Coronavirus screen: shortness of breath. Ebola Screen: Patient denies travel to an Ebola-affected area in the 21 days before illness onset. Initial Sepsis Screen: Does the patient meet any 2 criteria? RR > 20 per min. Does the patient have a suspected source of infection? No. Patient's initial sepsis screen is negative. Risk Assessment: Do you want to hurt yourself or someone else? Patient reports no desire to harm self or others. Onset of symptoms was June 18, 2024. 18:53 Method Of Arrival: Wheelchair aa5 18:53 Acuity: MEHNAZ 3 aa5 Historical: - Allergies: 18:53 Amoxicillin; aa5 18:53 Atarax; aa5 18:53 Doxycycline; aa5 18:53 HYDROCODONE; aa5 18:53 steroids; aa5 18:53 Sulfa (Sulfonamide Antibiotics); aa5 - PMHx: 18:53 Cholelithiasis; Diverticulitis; GERD; High Cholesterol; Hypertension; Hypothyroidism; aa5 Kidney stones; RIGHT RENAL ART ANUR; TUMOR REMOVAL FROM CHIN; - PSHx: 18:53 section; Cholecystectomy; Total abdominal hysterectomy; aa5 Screenin:29 [facility] ED Fall Risk Assessment (Adult) History of falling in the last 3 months, al5 including since admission No falls in past 3 months (0 pts) Confusion or Disorientation No (0 pts) Intoxicated or Sedated No (0 pts) Impaired Gait No (0 pts) Mobility Assist Device Used No (0 pt) Altered Elimination No (0 pt) Score/Fall Risk Level 0 - 2 = Low Risk Oriented to surroundings, Maintained a safe environment, Hourly rounding (assess needs \\T\\ fall precautionary measures) done. Abuse screen: Denies threats or abuse. Denies injuries from another. Nutritional screening: No deficits noted. Tuberculosis screening: No symptoms or risk factors identified. Assessment: 19:29 General: Appears in no apparent distress. comfortable, Behavior is calm, cooperative, al5 Smells of. Pain: Denies pain. Neuro: Level of Consciousness is awake, alert, obeys commands, Oriented to person, place, time, situation. Cardiovascular: Capillary refill < 3 seconds Patient's skin is warm and dry. Respiratory: Reports shortness of breath when she came in, o2 nasal cannula has helped Airway is patent Respiratory effort is even, unlabored, Respiratory pattern is regular, symmetrical. GI: No signs and/or symptoms were reported involving the gastrointestinal system. : No signs and/or symptoms were reported regarding the genitourinary system. EENT: No signs and/or symptoms were reported regarding the EENT system. Derm: Skin is intact, Skin is pink, warm \\T\\ dry. normal. Musculoskeletal: No signs and/or symptoms reported regarding the musculoskeletal system. 20:51 Reassessment: Patient appears in no apparent distress at this time. No changes from al5 previously documented assessment. Patient and/or family updated on plan of care and expected duration. Pain level reassessed. Patient is alert, oriented x 3, equal unlabored respirations, skin warm/dry/pink. 22:01 Reassessment: Patient appears in no apparent distress at this time. No changes from al5 previously documented assessment. Patient and/or family updated on plan of care and expected duration. Pain level reassessed. Patient is alert, oriented x 3, equal unlabored respirations, skin warm/dry/pink. Vital Signs: 18:53 BP 137 / 99; Pulse 81; Resp 26 S; Temp 97.9(O); Pulse Ox 94% on R/A; aa5 19:06 BP 126 / 73; Pulse 77; Resp 21; Pulse Ox 98% on 3 lpm NC; al5 20:00 BP 127 / 93; Pulse 91; Resp 19; Pulse Ox 98% on 3 lpm NC; al5 21:00 BP 110 / 63; Pulse 85; Resp 21; Pulse Ox 98% on 3 lpm NC; al5 21:23 Weight 77.11 kg; Height 5 ft. 1 in. ; vk 21:23 Body Mass Index 32.12 (77.11 kg, 154.94 cm) vk ED Course: 18:45 Patient arrived in ED. mr 18:53 Arm band placed on. aa5 18:55 Naga Delgado MD is Attending Physician. valeri 18:55 Triage completed. aa5 19:27 Mildred Valles RN is Primary Nurse. al5 19:28 Karon De La Torre MD is Hospitalizing Provider. valeri 19:28 Patient has correct armband on for positive identification. Bed in low position. Call al5 light in reach. Side rails up X2. Provided Education on: plan of care. 19:28 No provider procedures requiring assistance completed. Inserted saline lock: 20 gauge al5 in left forearm, using aseptic technique. Blood collected. Flushed with 10 mL NS. 22:01 Patient admitted, IV remains in place. al5 Administered Medications: 20:33 Drug: NS 0.9% IV 500 ml 500 ml IV at 1 bolus once; to be given as a bolus over 30 al5 minutes Volume: 500 ml; Route: IV; Rate: 1 bolus; Site: left forearm; 21:33 Follow up: Response: No adverse reaction; IV Status: Completed infusion; IV Intake: al5 500ml 20:33 Drug: Levalbuterol Inhalation 3.75 mg Inhalation once Route: Inhalation; al5 20:33 Drug: Ipratropium Inhalation Aerosol 0.5 mg Inhalation once Route: Inhalation; al5 20:33 Drug: MethylPrednisoLONE IVP 125 mg IVP once Route: IVP; Site: left forearm; al5 21:36 Follow up: Response: No adverse reaction al5 20:33 Drug: LevOfloxacin PO 750 mg PO once Route: PO; al5 21:36 Follow up: Response: No adverse reaction al5 20:33 Not Given (Duplicate Order): levalbuterol2.5 mg Inhalation once al5 21:32 Drug: Magnesium Sulfate IVPB 2 grams IVPB once over 1 hrs Route: IVPB; Infused Over: 1 al5 hrs; Site: left forearm; 21:36 Follow up: Response: No adverse reaction; IV Status: Infusion continued upon admission al5 21:33 Drug: NS 0.9% IV 1000 ml IV at 125 ml/hr once Route: IV; Rate: 125 ml/hr; Site: left al5 forearm; 21:36 Follow up: IV Status: Infusion continued upon admission al5 Medication: 19:29 VIS not applicable for this client. al5 Intake: 21:33 IV: 500ml; Total: 500ml. al5 Outcome: :29 Decision to Hospitalize by Provider. valeri 22:14 Admitted to Med/surg accompanied by tech, family with patient, via wheelchair, room al5 213, with oxygen, with chart, 22:14 Condition: stable 22:14 Instructed on the need for admit, 22:27 Patient left the ED. al5 Signatures: Naga Delgado MD MD cha Rivera, Mary, Reg Reg mr MancillaConwayLupe, RN RN aa5 Suni Bo Amanda RN RN al5 Corrections: (The following items were deleted from the chart) 20:33 20:32 Levalbuterol Inhalation 2.5 mg Inhalation al5 al5
[2024-06-18 19:32] LABS: Absolute Basophils 0.1 K/uL (0-0.5); Absolute Eosinophils 0.1 K/uL (0-0.5); Absolute Lymphocytes (CBC) 3.6 K/uL (0.7-4.9); Absolute Monocytes 0.6 K/uL (0.1-1.3); Absolute Neutrophil 6.9 K/uL (1.8-8.0); Basophils % 0.6 % (0-1.3); Eosinophils % 0.5 % (0-4.4); Hematocrit 49.5 % (36.0-45.0); Hemoglobin 16.4 g/dL (12.0-15.0); MCH 33.3 pg (27.0-35.0); MCHC 33.2 g/dL (32.0-36.0); MCV 100.4 fL (80-100); MPV 8.6 fL (7.6-11.3); Monocytes % 5.5 % (3.3-12.3); Neutrophils % 61.4 % (41.7-73.7); Nucleated Red Blood Cells % 0.1 % (0-0); Platelets 308 thou/uL (152-406); RBC Red Blood Cell Count 4.94 M/uL (3.86-4.86); Red Cell Distribution Width 13.9 % (12.1-15.2)
[2024-06-18 19:38] LABS: PT Prothrombin Time 11.5 SECONDS (10-13.0); Protime INR 1.01
[2024-06-18 19:53] LABS: Albumin 3.7 g/dL (3.4-5.0); Albumin/Globulin Ratio 0.9 (1.1-1.8); Anion Gap 8.6 mEq/L (5.0-15.0); Bilirubin Direct 0.2 mg/dL (0-0.2); Bilirubin Indirect, Calculated 0.3 mg/dL (0.2-0.8); Bilirubin Total 0.5 mg/dL (0.2-1.0); Globulin 4.2 g/dL (2.3-3.5); Magnesium 2.5 mg/dL (1.6-2.4); Potassium 3.6 mEq/L (3.5-5.1); Protein, Total 7.9 g/dL (6.4-8.2); Troponin High Sensitivity 4.6 pg/mL (<58.9)
--- NOTE | 2024-06-18 20:00 | RAD REPORT ---
EXAMINATION: ONE VIEW CHEST XR CLINICAL INDICATION: Cough;Dyspnea TECHNIQUE: Frontal chest projection is submitted. Examination is limited by patient positioning and t echnique. COMPARISON: 06/16/2024 FINDINGS: The lungs are diffusely emphysematous but grossly clear. The heart is upper limit of normal in size. No displaced fractures identified. IMPRESSION: COPD without an acute process suspected.
[2024-06-18] MEDS ORDERED: IPRATROPIUM BROM 0.5MG/2.5ML ONE (20:18)
[2024-06-18] MEDS ORDERED: LEVALBUTEROL 1.25 MG/3 ML NEB ONE (20:18)
[2024-06-18] MEDS ORDERED: METHYLPREDNISOLONE 125 MG INJ ONE (20:18)
[2024-06-18] MEDS ORDERED: levoFLOXacin 750 MG TAB ONE (20:19)
[2024-06-18] MEDS ORDERED: NA CHLORIDE 0.9% 500 ML ONE (20:19)
[2024-06-18] MEDS ORDERED: NA CHLORIDE 0.9% 1,000 ML ONE (20:19)
[2024-06-18] MEDS ORDERED: Magnesium Sulfate 2gm IVPB 2 G/50 ML BAG IV ONE (20:55)
[2024-06-18] MEDS ORDERED: ACETAMINOPHEN 500 MG TAB PO PRN (22:34)
[2024-06-18] MEDS: FAMOTIDINE 20 MG/2 ML VIAL IV SCH (23:17)
[2024-06-18 23:26] VITALS: BMI 32.1
[2024-06-19] MEDS: METHYLPREDNISOLONE 40 MG INJ IV SCH (01:30)
[2024-06-19 02:32] LABS: Absolute Lymphocytes (CBC) 1.2 K/uL (0.7-4.9); Absolute Monocytes 0.1 K/uL (0.1-1.3); Absolute Neutrophil 8.9 K/uL (1.8-8.0); Basophils % 0.2 % (0-1.3); Hematocrit 44.5 % (36.0-45.0); Hemoglobin 15.3 g/dL (12.0-15.0); Lymphocytes % 11.6 % (15.3-44.8); MCH 34.2 pg (27.0-35.0); MCHC 34.4 g/dL (32.0-36.0); MCV 99.4 fL (80-100); MPV 9.4 fL (7.6-11.3); Neutrophils % 87.2 % (41.7-73.7); Platelets 303 thou/uL (152-406); RBC Red Blood Cell Count 4.48 M/uL (3.86-4.86); Red Cell Distribution Width 13.5 % (12.1-15.2)
[2024-06-19 03:52] LABS: Band Neutrophils 3 % (0-1); Differential Total Cells Count 100; Lymphocytes 8 % (15-42); Reactive Lymphocytes 1 %; Segmented Neutrophils 88 % (40-80)
[2024-06-19 03:53] LABS: Blood Morphology Comment NOT SEEN (NOT SEEN); Monocytes 0 % (0-10); Platelet Estimate ADEQ
[2024-06-19 05:26] LABS: Anion Gap 7.2 mEq/L (5.0-15.0); Potassium 4.2 mEq/L (3.5-5.1)
--- NOTE | 2024-06-19 07:30 | RAD REPORT ---
EXAM: Chest Single View HISTORY: 59 years Female Chest Pain COMPARISON: 06/18/2024 FINDINGS: LUNGS/PLEURA: The lungs are clear. No pleural effusions or pneumothorax. No pulmonary edema. Emphysem a. CARDIAC/MEDIASTINUM: The cardiac silhouette is within normal limits. UPPER ABDOMEN: No significant abnormality. BONES: No acute abnormality. LINES/TUBES/OTHER: N/A IMPRESSION: No evidence of acute cardiopulmonary disease. No significant change from prior.
[2024-06-19] MEDS: levoFLOXacin 500 MG TAB PO SCH (08:35)
[2024-06-19] MEDS: ASPIRIN EC 81 MG TAB PO SCH (08:35)
[2024-06-19 12:22] VITALS: BP 119/80; TEMP 97.9
[2024-06-19] MEDS: ALBUTEROL 2.5 MG/3 ML NEB SOL NEB PRN (13:28)
[2024-06-19] MEDS: IPRATROPIUM BROM 0.5MG/2.5ML NEB PRN (13:28)
[2024-06-19 14:01] VITALS: O2SAT 97
--- NOTE | 2024-06-19 23:14 | HP ---
Date of Admission: 06/19/2024 Chief Complaint: Low oxygen and shortness of breath. History Of Present Illness: This is a 59-year-old female patient, who was discharged to go home yest erday without oxygen. Please see dictated discharge summary from yesterday for more details. The pa johny's room air oxygen saturation was 87% yesterday and I did request Social Service to arrange for home oxygen and subsequently nurse contacted me and informed me that the patient refused to use oxyge n at home and with that, she was discharged to go home without any oxygen because of her refusal. Af ter she went home yesterday, the patient's mother called office and informed us that the patient now is willing to use oxygen and at that time, we advised the patient and the patient's mother to call [facility] and talk to social psychologist as they already have order for oxygen and I also communicated with fercho shultz patient's nurse who took care of her and informed her of the same details. Later on, the patient ended up in emergency room and after she was evaluated, she was admitted to hospital with hypoxia. Freddie quispe I saw her this morning, she was sleeping, easily arousable, not in distress, on nasal cannula oxy gen, and she tells me that she is willing to use oxygen at home. I did have a long discussion with [facility] today and informed her that she will need to use oxygen all the time using oxygen concentrator at home and when she is ambulating or out of house, to use portable oxygen concentrator, but she should use oxygen all the time. I also advised her not to smoke anymore and she tells me today that now she is scared enough about her breathing that she has decided that she will no longer smoke. Unfortunat zora, the patient has caused significant lung damage from years of smoking, but I have encouraged her not to smoke anymore now to prevent more significant or rapid decline. I have also instructed her th at if she smokes while using oxygen or if anybody smokes around her while she is using oxygen, it can cause serious bodily injury and almanzar. Physical Examination: Vital Signs: Temperature 98.2, pulse 90, respiratory rate 97, blood pressure 141/66, oxygen saturati on 97% with 3 L nasal cannula oxygen. Height 5 feet 1 inch, weight 170 pounds. General: Awake, alert, oriented, not in distress. HEENT: Head atraumatic, normocephalic. Conjunctivae nonerythematous. Sclerae white. Mouth, no thr ush or edema noted. Ears/Nose, no mass, lesion, discharge noted. Neck: Supple. No JVD, lymph nodes, bruit, thyromegaly noted. Lungs: Bilateral good equal air entry. Clear to auscultation. No rhonchi. No rales. Heart: Normal heart sounds, no murmur or gallop. Abdomen: Soft, bowel sounds normal. No guarding, rigidity, tenderness, mass, hepatosplenomegaly, dis tention, or bruit noted. Extremities: No leg edema. No calf tenderness. Skin: No rash, ulcer, cellulitis. Lymphatics: No lymph node enlargement in neck, supraclavicular, infraclavicular region. Neuro: No focal neurological deficit. Chest: Unremarkable. External Genitalia: Deferred. Rectal: Deferred. Laboratory Data: Yesterday, WBC 11.2, hemoglobin 16.4, platelets 308. Today, WBC 10.2, hemoglobin 1 5.3, platelets 303. Chemistry yesterday, sodium 137, potassium 3.6, chloride 106, bicarb 26, BUN 13, creatinine 0.61, glucose 133, lactic acid 1.2. Liver function tests unremarkable. Troponin 4.6 on the first set, second set 4.8. Today chemistry, sodium 137, potassium 4.2, chloride 107, bicarb 27, BUN 15, creatinine 0.74, glucose 213. Hospital Course: After the patient was evaluated in ER, she was admitted to hospital. Oxygen was st arted in emergency room and this morning after I saw her, I did communicate with nursing staff. Her oxygen was discontinued after I saw her this morning per my instruction and room air oxygen saturatio n at rest was 94% and with less than 1 minute of walk, her oxygen saturation dropped down to 86% and she was having shortness of breath. She was brought back to room and was placed back on oxygen and h er oxygen saturation increased to more than 90% as documented. Social Service was consulted to help make arrangements for home oxygen and once that was completed, the patient was discharged to go home in stable condition. Final Diagnoses: 1. Chronic respiratory failure with hypoxia. 2. COPD. 3. Tobacco dependence. 4. Hypertension. 5. Type 2 diabetes mellitus. 6. Mixed hyperlipidemia. 7. Hypothyroidism. 8. Allergic rhinitis. 9. Gastroesophageal reflux disease. Total time spent today 60 minutes. HOWARD/PAOLA Voice ID: [id number]
--- NOTE | 2024-06-21 08:48 | EKG ---
Test Date: 2024-06-18 Test Time: 19:40:07 Cytotechnologist/Cytology Supervisor: ARGELIA MEASUREMENT RESULTS: Intervals: Rate: 88 TX: 118 QRSD: 66 QT: 372 QTc: 450 [place]: P: 83 TX: 118 QRS: 78 T: 68 INTERPRETIVE STATEMENTS: Normal sinus rhythm with sinus arrhythmia Normal ECG Compared to ECG 04/23/2024 01:03:00 No significant changes Electronically Signed On 06-21-24 08:40:10 CDT by Vimal Okeefe
== END 2024-06-19 15:28 | disposition home or self-care (01) ==
LOC: ER 18:44 → ERHOLD 19:30 → 2ND 21:54
PROVIDERS: ADMIT Internal Medicine; ATTEND Internal Medicine
DX: J96.11 Chronic respiratory failure with hypoxia (principal); J44.1 Chronic obstructive pulmonary disease with (acute) exacerbation; I10 Essential (primary) hypertension; E11.9 Type 2 diabetes mellitus without complications; E78.2 Mixed hyperlipidemia; E03.9 Hypothyroidism, unspecified; J30.9 Allergic rhinitis, unspecified; K21.9 Gastro-esophageal reflux disease without esophagitis; Z87.891 Personal history of nicotine dependence; Z88.1 Allergy status to other antibiotic agents; Z88.2 Allergy status to sulfonamides; Z88.5 Allergy status to narcotic agent
CPT/HCPCS: 36415; 71045; 80048; 80076; 83605; 83735; 83880; 84484; 85025; 85610; 87040; 93005; 94640; 94760; 96361; 96374; 96375; 99285; G0378; J2919; J3475; J7030; J7040; J7613; J7614; J7644